=== PATIENT | female | born 1955 | race Caucasian/White ===

== ENCOUNTER 2016-12-20 18:19 | Inpatient (IN) | payer MEDICAID, SELFPAY ==
[2016-12-20] MEDS ORDERED: Ondansetron HCl/PF 4 MG/2 ML Vial ONE (18:32)
[2016-12-20 18:57] LABS: #Eosinphils 0.1 thou/uL (0.0-0.7); #Lymphocytes 1.3 thou/uL (1.20-3.40); #Monocytes 0.8 thou/uL (0.11-0.59); #Neutrophils 4.2 thou/uL (1.40-6.50); %Basophils 0.7 % (0.0-1.0); %Lymphocytes 20.8 % (21.0-51.0); %Monocytes 11.9 % (0.0-10.0); Hematocrit 40.7 % (36.0-47.0); Mean Platelet Volume 7.1 fL (7.4-10.4); Red Blood Cell (RBC) Count 4.33 mill/uL (4.20-5.40); White Blood Cell (WBC) Count 6.4 thou/uL (4.8-10.8)
[2016-12-20 19:38] LABS: Chloride 104 mmol/L (98-107)
[2016-12-20 19:39] LABS: Calcium 7.7 mg/dL (7.8-10.44); Globulin 2.7 g/dL (2.4-3.5); Protein, Total 5.6 g/dL (6.0-8.3)
[2016-12-20 19:41] LABS: Anion Gap 12 mmol/L (10-20); Bilirubin, Total 2.8 mg/dL (0.2-1.2); Carbon Dioxide 19 mmol/L (23-31)
[2016-12-20 19:42] LABS: Alkaline Phosphatase 340 U/L (40-150)
[2016-12-20 19:43] LABS: BUN (Urea Nitrogen) 25 mg/dL (9.8-20.1); Calc. Creatinine Clearance 0 mL/min (70-130); Estimated GFR-MDRD 70
[2016-12-20 19:44] LABS: AST (SGOT) 1173 U/L (5-34)
[2016-12-20 19:45] LABS: ALT (SGPT) 482 U/L (8-55)
[2016-12-20] MEDS ORDERED: Dextrose 50% Abboject 50 ML SYRINGE ONE (19:54)
[2016-12-20] MEDS ORDERED: Water For Inject, Bacteriostat 30 ML ONE (22:40)
[2016-12-20] MEDS ORDERED: methylPREDNISolone Sod Succ/PF 125 MG/2 ML VIAL ONE (22:40)
[2016-12-20 22:45] LABS: Bilirubin Small (Negative); Blood, Urine Negative (Negative); Glucose, Urine (Dipstick) 100 mg/dL (Negative); Ketone, Urine Trace mg/dL (Negative); Nitrite Negative (Negative); Protein, Urine (Dipstick) Negative (Neg-Trace)
[2016-12-20 22:49] LABS: Bacteria/HPF Rare-Few HPF (None Seen); Hyaline Casts/LPF 0-3 HYALINE CAST LPF (0-3 Hyaline); RBC/HPF 0-3 HPF (0-3); Squamous Epithelial None Seen HPF (0-3); WBC/HPF 0-3 HPF (0-3)
--- NOTE | 2016-12-20 22:49 | RAD ---
CHEST ONE VIEW ABDOMEN TWO VIEWS 12/20/16 HISTORY: Chest and abdomen pain. COMPARISON: 07/26/14 FINDINGS: The cardiac silhouette is magnified by projection. Pulmonary vasculature is unremarkable. Lungs are hyperinflated. A lobular 2.7 cm nodule now projects over the right lung base. There is no evidence o f free subdiaphragmatic gas. Gas and stool are apparent within the colon and rectum. Metallic clips overlie the gallbladder fossa . No differential air fluid levels are apparent. Phleboliths project over the pelvis. IMPRESSION: 1. Nonspecific bowel gas pattern. No evidence of obstruction. 2. Status post cholecystectomy. 3. Lobular nodular density projecting over the right lung base. Please consider short term foll owup with upright PA and lateral views of the chest. 4. COPD. POS: [facility]
[2016-12-20] MEDS ORDERED: Ondansetron HCl/PF 4 MG/2 ML Vial IVP PRN (23:55)
[2016-12-20] MEDS ORDERED: Acetaminophen 325 MG TAB PO PRN (23:55)
[2016-12-20] MEDS ORDERED: Ondansetron ODT 4 MG TAB SL PRN (23:55)
--- NOTE | 2016-12-21 00:12 | PDOC.EVN ---
Event Note - Event Note Event Note: [id number] h&p dictated 1. R/O Pneumonia 2. ACute adrenal crisis 3. Hypotension 4. Non gap metabolci acidosis 5. Hypokalemia see orders
[2016-12-21 00:14] VITALS: BMI 19.1
[2016-12-21] MEDS ORDERED: Hydrocortisone Sod Succ/PF 100 mg/2 ml Vial IVP SCH ×2 (00:30→06:00)
[2016-12-21] MEDS ORDERED: Hydrocortisone Sod Succ/PF 100 MG in Sodium Chloride 0.9% 50 ML IVPB SCH (00:30)
[2016-12-21] MEDS: Dextrose 5 % And 0.9 % NaCl 1,000 ML IV SCH ×2 (00:30→06:17)
[2016-12-21] MEDS ORDERED: Sodium Chloride 0.9% 1,000 ML IV SCH (01:00)
[2016-12-21] MEDS ORDERED: Potassium Chloride 40 MEQ in Sodium Chloride 0.9% 500 ML IVPB SCH (01:00)
[2016-12-21 01:11] LABS: Troponin I 0.086 ng/mL (< 0.028)
[2016-12-21 04:22] LABS: Troponin I 0.116 ng/mL (< 0.028)
[2016-12-21] MEDS: Levothyroxine Sodium 75 MCG TAB PO SCH (06:16)
--- NOTE | 2016-12-21 06:21 | HP ---
DATE OF ADMISSION: 12/21/2016 CHIEF COMPLAINT: Nausea, vomiting. HISTORY OF PRESENT ILLNESS: The patient is a 66-year-old female with past medical history of [place] 's disease, hypothyroidism, now came to the ER today complaining of nausea, vomiting, and diarrhea. The patient started having nausea, vomiting and diarrhea 2 days back, 4-5 times. The patient complai ns of generalized fatigue also and so she came to the ER. The patient takes steroids at home, but no t able to keep it down. Denies any cough. The patient complains of some fever and chills, but she d oes not know how high the fever was, denies any chest pain, denies any palpations. Per ED physician, patient was hypoglycemic in the ER also. Symptoms improved after dextrose was given. The patient ap pears tired at this time. Denies any chest pain. Denies any palpations. Denies any cough, denies s putum production. PAST MEDICAL HISTORY: As per HPI. PAST SURGICAL HISTORY: Cholecystectomy. SOCIAL HISTORY: Denies smoking, denies alcohol, denies any drugs. FAMILY HISTORY: Denies any heart problems. MEDICATIONS: Reviewed. ALLERGIES: Reviewed. REVIEW OF SYSTEMS: CONSTITUTIONAL: Positive for fatigue. Positive for fever and chills. EYES: Negative. ENT: Negative. NECK: Negative neck pain. Negative for dizziness and was negative. CARDIOVASCULAR: Denies any chest pain. RESPIRATORY: Denies any cough, denies sputum production. GI: Positive for nausea, vomiting, diarrhea. CRANIAL NERVE SYSTEM: Denies syncope. PSYCHIATRIC: Denies anxiety. INTEGUMENT: Denies any rash. All other review of systems are reviewed and are negative. PHYSICAL EXAMINATION: CONSTITUTIONAL/VITAL SIGNS: At the time of H&P performed, blood pressure is 91/50, pulse ox 97%, hea rt rate 77, respiratory rate 18. GENERAL: The patient appears comfortable. HEENT: Pupils equal, round, and reactive. ENT: Patent. Nose normal. Ears normal. Teeth intact. Tongue is moist. NECK: Supple. No JVD. CARDIOVASCULAR: S1, S2 present. Regular rate and rhythm, no murmurs, no rubs, no gallops. RESPIRATORY SYSTEM: No wheezing, no rhonchi. Breath sounds bilaterally. ABDOMEN: Nontender, no guarding, no organomegaly, no masses felt. MUSCULOSKELETAL: No edema. INTEGUMENT: No skin rash. PSYCHIATRIC: Mood appropriate at this time. LABORATORY DATA: White count 6.4, hemoglobin 13.8, platelet count is 262. BMP showed sodium 132, po tassium 3.4, chloride 104, CO2 of 19, BUN of 25, creatinine 0.82, glucose 30, TSH done on 12/16/2016 is 3.214. Cortisol level is less than 1. ASSESSMENT AND PLAN: The patient is a 61-year-old female. 1. Hypotension, possibly adrenal crisis. The patient said she is taking steroids at home, but her c ortisol level is significantly low. We will go ahead and start patient on IV Solu-Cortef. We will m onitor the patient closely at this time. We will start patient on IV fluids also. 2. Hypokalemia, replace potassium. 3. Metabolic acidosis, non-gap, appears secondary to diarrhea. Monitor bicarbonate level closely. Plan to check stool for C. diff also. 4. Nausea and vomiting p.r.n. antiemetics. 5. Rule out pneumonia. CT acute abdomen showed possible infiltrate. Plan to check a chest x-ray. Plan to put the patient on broad spectrum antibiotics, also. The case was discussed in detail with the patient.
--- NOTE | 2016-12-21 08:19 | PDOC.PN ---
- Subjective Encounter Start Date: 12/21/16 Encounter Start Time: 07:50 Subjective: I FEEL A LITTLE BETTER - Objective MAR Reviewed: Yes Vital Signs & Weight: Vital Signs (12 hours) Temp Pulse Resp BP Pulse Ox 12/21/16 07:57 99.8 F H 65 25 H 99 12/21/16 00:00 99.8 F H 65 25 H 90 L 12/20/16 23:50 99.8 F H 72 24 H 91/48 L 90 L Weight Weight 106 lb 0.677 oz Most Recent Monitor Data Heart Rate from ECG 75 NIBP 110/52 NIBP BP-Mean 57 Respiration from ECG 16 SpO2 98 I&O: 12/20/16 12/21/16 12/22/16 06:59 06:59 06:59 Intake Total 2300 0 Output Total 950 0 Balance 1350 0 Result Diagrams: 12/20/16 18:40 12/20/16 18:40 Additional Labs: Accuchecks 12/21/16 12/21/16 12/21/16 08:09 06:27 03:30 POC Glucose 204 H 145 H 145 H 12/21/16 12/20/16 12/20/16 01:21 23:41 23:13 POC Glucose 103 89 93 Phys Exam - Physical Examination LETHARGIC HEENT: PERRLA Neck: supple, full ROM Respiratory: clear to auscultation bilateral Cardiovascular: RRR Gastrointestinal: soft, non-tender, positive bowel sounds Musculoskeletal: edema present Neurological: non-focal, moves all 4 limbs Dx/Plan (1) [place] disease Code(s): E27.1 - PRIMARY ADRENOCORTICAL INSUFFICIENCY Status: Acute (2) Hypothyroidism Code(s): E03.9 - HYPOTHYROIDISM, UNSPECIFIED Status: Acute (3) Lower extremity edema Code(s): R60.0 - LOCALIZED EDEMA Status: Acute (4) Viral gastroenteritis Code(s): A08.4 - VIRAL INTESTINAL INFECTION, UNSPECIFIED Status: Acute (5) Elevated liver enzymes Code(s): R74.8 - ABNORMAL LEVELS OF OTHER SERUM ENZYMES Status: Acute Plan: viral vs hypotension will r/o infectious process - Plan cont current plan of care * .
[2016-12-21 08:22] LABS: #Lymphocytes 0.5 thou/uL (1.20-3.40); #Monocytes 0.1 thou/uL (0.11-0.59); #Neutrophils 1.9 thou/uL (1.40-6.50); %Eosinophils 0.3 % (0.0-10.0); %Lymphocytes 21.1 % (21.0-51.0); Hematocrit 31.8 % (36.0-47.0); Mean Platelet Volume 7.1 fL (7.4-10.4); Red Blood Cell (RBC) Count 3.38 mill/uL (4.20-5.40); White Blood Cell (WBC) Count 2.5 thou/uL (4.8-10.8)
[2016-12-21 08:44] LABS: Anion Gap 7 mmol/L (10-20); BUN (Urea Nitrogen) 14 mg/dL (9.8-20.1); Calc. Creatinine Clearance 55 mL/min (70-130); Calcium 7.6 mg/dL (7.8-10.44); Carbon Dioxide 19 mmol/L (23-31); Chloride 112 mmol/L (98-107); Estimated GFR-MDRD 74
[2016-12-21 08:50] LABS: Troponin I 0.074 ng/mL (< 0.028)
[2016-12-21] MEDS: Sodium Chloride 0.9% 1,000 ML IV SCH ×2 (09:00→20:36)
--- NOTE | 2016-12-21 11:00 | CON ---
DATE OF CONSULTATION: 12/21/2016 HISTORY OF PRESENT ILLNESS: Jessica Baeza is a 61-year-old female who was admitted last night with n ausea and vomiting, unable to keep food down. She did not take her medicine which is hydrocortisone 20 twice a day, fludrocortisone acetate 0.1 and 75. This morning she is feeling better, in fact, she is eating breakfast. Blood sugars are 200, pulse 67 , blood pressure 101/57, sats are 97, respirations 20. Her I's and O's have been good. She came in last night with nausea and vomiting. No alcohol abuse. PAST MEDICAL HISTORY: Extensively outlined includes Graves' and [place]'s disease many years, diagno sed in the [facility]. PAST SURGICAL HISTORY: Cholecystectomy. SOCIAL HISTORY: Nonsmoker. REVIEW OF SYSTEMS: Otherwise negative. PHYSICAL EXAMINATION: VITAL SIGNS: Pulse 67, blood pressure 100/57, sats 100, respirations 16. CHEST: Chest revealed no wheezing or crackles. CARDIAC: Normal S1 and S2. ABDOMEN: Soft, no masses. LABORATORY: White count 2.6, H&H 10 and 31, platelet count 193, glucose 204. Electrolytes are mp l. Sodium 134. IMPRESSION: 1. Possibly viral syndrome, nausea and vomiting resolved. 2. [place]'s disease on usp maintenance medication. 3. Hypothyroidism. 4. Abnormal x-ray, right lung nodule in a nonsmoker. PLAN: Switched her back to home medications. Continue IV normal saline, supportive care, PT. When stable can be transferred out of the ICU. I will follow while in the ICU.
[2016-12-21] MEDS: Hydrocortisone 10 mg Tablet PO SCH ×2 (14:28→20:45)
[2016-12-21] MEDS: Fludrocortisone Acetate 0.1 MG TAB PO SCH (14:28)
[2016-12-21 14:30] LABS: Troponin I 0.037 ng/mL (< 0.028)
[2016-12-22 04:27] LABS: #Lymphocytes 0.9 thou/uL (1.20-3.40); #Monocytes 0.5 thou/uL (0.11-0.59); #Neutrophils 5.6 thou/uL (1.40-6.50); %Basophils 0.2 % (0.0-1.0); %Eosinophils 0.2 % (0.0-10.0); %Lymphocytes 12.9 % (21.0-51.0); %Monocytes 7.5 % (0.0-10.0); Hematocrit 28.2 % (36.0-47.0); Mean Platelet Volume 7.2 fL (7.4-10.4); Red Blood Cell (RBC) Count 2.97 mill/uL (4.20-5.40); White Blood Cell (WBC) Count 7.1 thou/uL (4.8-10.8)
[2016-12-22 04:44] LABS: ALT (SGPT) 231 U/L (8-55); AST (SGOT) 272 U/L (5-34); Alkaline Phosphatase 221 U/L (40-150); Anion Gap 9 mmol/L (10-20); BUN (Urea Nitrogen) 13 mg/dL (9.8-20.1); Bilirubin, Direct 0.6 mg/dL (0.1-0.3); Bilirubin, Total 0.9 mg/dL (0.2-1.2); Calc. Creatinine Clearance 65 mL/min (70-130); Calcium 7.9 mg/dL (7.8-10.44); Carbon Dioxide 18 mmol/L (23-31); Chloride 116 mmol/L (98-107); Estimated GFR-MDRD 89; Protein, Total 5.4 g/dL (6.0-8.3)
[2016-12-22] MEDS: Sodium Chloride 0.9% 1,000 ML IV SCH (05:47)
[2016-12-22] MEDS: Levothyroxine Sodium 75 MCG TAB PO SCH (05:48)
[2016-12-22] MEDS: Fludrocortisone Acetate 0.1 MG TAB PO SCH (08:53)
[2016-12-22] MEDS ORDERED: FLU VACC QS2017-18 36 mo. & older 0.5 ML SYRINGE IM ONE (09:00)
[2016-12-22] MEDS: Hydrocortisone 10 mg Tablet PO SCH (10:31)
--- NOTE | 2016-12-22 12:39 | PRG ---
DATE OF SERVICE: 12/22/2016 SUBJECTIVE: eJssica Baeza is awake, alert, responsive. PHYSICAL EXAMINATION: VITAL SIGNS: Blood pressure 127/64, saturation 99% on room air, temperature 98, pulse 61, respirator y rate 16. No distress, no nausea, vomiting. CHEST: Decreased breath sounds, no wheezing. CARDIAC: Normal S1 and S2. No gallops. ABDOMEN: Soft, no masses. LABORATORY DATA: Her electrolytes have returned to normal. Liver function is elevated. AST and ALT at 272 and 231. IMPRESSION: 1. Elevated liver function with history of [place] disease on long-term replacement medications. 2. Hypertension, resolved. PLAN: Disposition as per primary care physician, Pulmonary will follow at a distance.
--- NOTE | 2016-12-22 15:51 | PDOC.PN ---
- Subjective Encounter Start Date: 12/22/16 Encounter Start Time: 15:49 Ms. Baeza was seen today in follow-up of [place]'s disease, and gastroenteritis. She says she feels " great ". She denies having any nausea or vomiting or diarrhea. - Objective MAR Reviewed: Yes Vital Signs & Weight: Vital Signs (12 hours) Temp Pulse Resp BP Pulse Ox 12/22/16 11:54 97.4 F L 64 16 112/70 99 12/22/16 08:00 98.1 F 65 16 12/22/16 07:13 98.1 F 65 16 127/64 99 12/22/16 04:00 97.1 F L 67 16 111/54 L 98 Weight Weight 116 lb 4 oz Most Recent Monitor Data Heart Rate from ECG 75 NIBP 110/52 NIBP BP-Mean 57 Respiration from ECG 16 SpO2 98 I&O: 12/21/16 12/22/16 12/23/16 06:59 06:59 06:59 Intake Total 2300 3860 Output Total 950 1000 Balance 1350 2860 Result Diagrams: 12/22/16 04:05 12/22/16 04:05 Additional Labs: Accuchecks 12/22/16 12/22/16 12/21/16 11:57 05:00 20:53 POC Glucose 113 H 107 165 H 12/21/16 16:25 POC Glucose 162 H Phys Exam - Physical Examination HEENT: PERRLA Respiratory: no wheezing, no rales, no rhonchi, clear to auscultation bilateral Cardiovascular: RRR, no significant murmur Gastrointestinal: soft, non-tender, positive bowel sounds Musculoskeletal: no edema Dx/Plan (1) Elevated liver enzymes Code(s): R74.8 - ABNORMAL LEVELS OF OTHER SERUM ENZYMES Status: Acute (2) [place] disease Code(s): E27.1 - PRIMARY ADRENOCORTICAL INSUFFICIENCY Status: Acute (3) Adrenal crisis Status: Acute (4) Hypothyroidism Code(s): E03.9 - HYPOTHYROIDISM, UNSPECIFIED Status: Acute - Plan * Irwin's crisis- mild and it has resolved * Gastroenteritis- resolved * Stable for discharge home.
[2016-12-22 16:35] VITALS: BP 132/79; TEMP 97.8
--- NOTE | 2016-12-22 23:22 | DIS ---
DATE OF ADMISSION: 12/20/2016 DATE OF DISCHARGE: 12/22/2016 DISCHARGE DISPOSITION: Home. PRIMARY DISCHARGE DIAGNOSES: 1. Gastroenteritis. 2. [place]'s crisis. 3. History of hypothyroidism. DISCHARGE MEDICATIONS: Include fludrocortisone 0.1 mg p.o. daily, hydrocortisone 20 mg twice a day, and Synthroid 75 mcg p.o. daily. PROCEDURES DONE DURING THE ADMISSION: She had an echocardiogram indicating an ejection fraction of 5 5% to 60% with poor endocardial definition. CODE STATUS: FULL CODE. ALLERGIES: No known drug allergies. HOSPITAL COURSE: Ms. Baeza is a pleasant 61-year-old female who presented to the emergency room with complaints of nausea, vomiting, and diarrhea. She says that it was occurring at least 4 to 5 times a day. She was also noted to be hypotensive. She was admitted and it was felt that she is having a gastroenteritis which precipitated mild [place]'s crisis. She was given IV hydrocortisone and IV flu id resuscitation and improved dramatically overnight. The following day, she was improved and was evans bsequently able to be discharged home and to have close outpatient followup with her primary care juwan aparicio.
== END 2016-12-22 16:58 | disposition home or self-care (01) | DRG 644 ==
LOC: ERS 18:19 → CCU 22:29 → T4-B 12-21 19:28
PROVIDERS: ADMIT Internal Medicine; ATTEND Internal Medicine
DX: E27.2 Addisonian crisis (principal); E87.2 Acidosis; I95.9 Hypotension, unspecified; R11.2 Nausea with vomiting, unspecified; E27.1 Primary adrenocortical insufficiency; E03.9 Hypothyroidism, unspecified; E87.6 Hypokalemia; I10 Essential (primary) hypertension; Z79.52 Long term (current) use of systemic steroids; A08.4 Viral intestinal infection, unspecified; E16.2 Hypoglycemia, unspecified
CPT/HCPCS: 36415; 36416; 51701; 74022; 80048; 80053; 80074; 80076; 81001; 82533; 83605; 84439; 84484; 85025; 90471; 90682; 90732; 93005; 93306; 96361; 96374; 96375; A4353; G0008; G0009; J1720; J2405; J2930; J3480; J7050; Q2036

== ENCOUNTER 2017-02-24 17:14 | Inpatient (IN) | payer MEDICAID ==
[2017-02-24] MEDS ORDERED: Dexamethasone 4 mg/ml Vial ONE (17:52)
[2017-02-24 17:58] LABS: #Eosinphils 0.1 thou/uL (0.0-0.7); #Lymphocytes 2.4 thou/uL (1.20-3.40); #Monocytes 1.1 thou/uL (0.11-0.59); #Neutrophils 6.4 thou/uL (1.40-6.50); %Basophils 0.4 % (0.0-1.0); %Eosinophils 1.1 % (0.0-10.0); %Monocytes 10.5 % (0.0-10.0); Hemoglobin 12.7 g/dL (12.0-16.0); Mean Corpuscular HGB CONC 33.3 g/dL (32.0-36.0); Mean Corpuscular Hemoglobin 31.4 pg (27.0-31.0); Mean Corpuscular Volume 94.5 fl (81.0-99.0); Mean Platelet Volume 6.9 fL (7.4-10.4); Platelet Count 290 thou/uL (130-400); RBC Distribution Width 12.3 % (11.5-14.5); Red Blood Cell (RBC) Count 4.03 mill/uL (4.20-5.40)
[2017-02-24 18:03] LABS: INR-International Normal Ratio 1.2; PTT 36.4 SEC (22.9-36.1); Prothrombin Time 15.2 SEC (12.0-14.7)
[2017-02-24] MEDS ORDERED: Oseltamivir 75 MG CAP PO SCH (18:15)
[2017-02-24 18:24] LABS: CKMB 0.1 ng/mL (0-6.6); Troponin I 0.019 ng/mL (< 0.028)
[2017-02-24 18:28] LABS: ALT (SGPT) 63 U/L (8-55); AST (SGOT) 155 U/L (5-34); Albumin 3.8 g/dL (3.4-4.8); Alkaline Phosphatase 118 U/L (40-150); Anion Gap 14 mmol/L (10-20); BUN (Urea Nitrogen) 19 mg/dL (9.8-20.1); Bilirubin, Total 0.7 mg/dL (0.2-1.2); Calc. Creatinine Clearance 0 mL/min (70-130); Calcium 9.2 mg/dL (7.8-10.44); Carbon Dioxide 21 mmol/L (23-31); Chloride 102 mmol/L (98-107); Estimated GFR-MDRD 37; Globulin 3.5 g/dL (2.4-3.5); Glucose 103 mg/dL (80-115); Lipase 43 U/L (8-78); Magnesium 1.6 mg/dL (1.6-2.6); Potassium 4.4 mmol/L (3.5-5.1); Protein, Total 7.3 g/dL (6.0-8.3); Sodium 133 mmol/L (136-145)
[2017-02-24] MEDS ORDERED: Acetaminophen 1,000 MG in Premix Bag 1 BAG IVPB SCH (18:30)
--- NOTE | 2017-02-24 18:39 | RAD ---
ONE VIEW CHEST 02/25/16 HISTORY: Cough. Flu symptoms. COMPARISON: 07/26/14. No definite infiltrate. Vascular attenuation is seen bilaterally. Heart and mediastinum are unremarka ble. IMPRESSION: No acute infiltrates seen on one view study. POS: [facility]
[2017-02-24] MEDS ORDERED: Cefepime 2 GM/10 ML SYR ONE (18:51)
[2017-02-24] MEDS ORDERED: Norepinephrine 8 MG/0.9% NS 250 ML ONE (19:25)
[2017-02-24 19:29] LABS: Actual Bicarbonate (HCO3a) 17.8 mEq/L (22-26); Base Excess (BEa) -4.2 mEq/L (0 (+/-) 2.5); CO2 Tension 25.5 mmHg (35.0-45.0); O2 Tension (PaO2) 65.7 mmHg (80.0-100.0); pH, Arterial 7.46 (7.35-7.45)
[2017-02-24 19:30] LABS: ALV-art Gradient 52.155 (0-20); Analyzer IN Cardio ER; Puncture Site RRA
--- NOTE | 2017-02-24 19:39 | CT ---
CT HEAD WITHOUT CONTRAST: 02/24/17 Multiple axial tomograms obtained through the head without IV enhancement. HISTORY: Mental status change. Ventricles have normal size and position. No evidence of intracranial hemorrhage or mass. Sinuses and mastoids are well aerated. IMPRESSION: No evidence of acute abnormality. POS: [facility]
[2017-02-24] MEDS ORDERED: Acetaminophen 650 MG Suppository PR PRN (19:40)
[2017-02-24] MEDS ORDERED: CCU Electrolyte Replacement 1 EACH IVPB ONE (19:40)
[2017-02-24] MEDS ORDERED: Bisacodyl 5 MG TAB PO PRN (19:40)
[2017-02-24] MEDS ORDERED: Acetaminophen 325 MG TAB PO PRN (19:40)
[2017-02-24] MEDS ORDERED: Ondansetron HCl/PF 4 MG/2 ML Vial IVP PRN (19:40)
[2017-02-24] MEDS ORDERED: Norepinephrine 8 MG/0.9% NS 250 ML IVPB PRN (19:40)
[2017-02-24] MEDS ORDERED: CCU ELECTROLYTE REPLACEMENT PROTOCOL FS PRN (19:49)
[2017-02-24] MEDS ORDERED: Potassium Phosphate 15 MMOL in Sodium Chloride 0.9% 250 ML 250 ML IV PRN (19:49)
[2017-02-24] MEDS ORDERED: Magnesium Oxide 400 MG TAB PO PRN ×2 (19:49)
[2017-02-24] MEDS ORDERED: Potassium Chloride 40 MEQ in Premix Bag 1 BAG IVPB PRN (19:49)
[2017-02-24] MEDS ORDERED: Potassium Phosphate 12 MMOL in Sodium Chloride 0.9% 250 ML 250 ML IV PRN (19:49)
[2017-02-24] MEDS ORDERED: Potassium Chloride 20 MEQ TAB PO PRN (19:49)
[2017-02-24] MEDS ORDERED: Magnesium 2 GM/NS 0.9% 100 ML 2 GM in Premix Bag 1 BAG IVPB PRN (19:49)
[2017-02-24] MEDS ORDERED: Potassium Phosphate 9 MMOL in Sodium Chloride 0.9% 100 ML IVPB PRN (19:49)
[2017-02-24] MEDS ORDERED: Potassium Chloride 40 MEQ in Sodium Chloride 0.9% 250 ML 250 ML IVPB PRN (19:49)
[2017-02-24 20:21] LABS: Bilirubin Negative (Negative); Blood, Urine Negative (Negative); Clarity CLEAR (Clear); Glucose, Urine (Dipstick) Negative (Negative); Leukocyte Negative (Negative); Nitrite Negative (Negative); Protein, Urine (Dipstick) Negative (Neg-Trace); Specific Gravity, Urine 1.015 (1.002-1.036); Urobilinogen 0.2 mg/dL (0.2-1.0)
[2017-02-24] MEDS ORDERED: Lorazepam 2 MG/ML VIAL ONE (20:27)
--- NOTE | 2017-02-24 20:29 | HP ---
PRIMARY CARE PHYSICIAN: None. CHIEF COMPLAINT: Fever. HISTORY OF PRESENT ILLNESS: Ms. Baeza is a pleasant 61-year-old lady, who was seen at [facility] on 02/24/2017. She is accompanied by her daughter in the emergency room. She was reportedly doing well until yesterday. Her last long distance travel was to [place] from 01/06 to 01/27/2017 She has received influenza vaccine as well as pneumococcal vaccine this year. Today morning, she started feeling unwell. She complained of a sore throat. She also had fever and chills, although her temperature was not recorded at home. She did not have any headache. She denie s any nausea, vomiting, or diarrhea. She reports having cough that is nonproductive. She denies any chest pain. She denies any abdominal pain. She came to the emergency room because of ongoing fever and chills. REVIEW OF SYSTEM: The following complete review of systems was negative, unless otherwise mentioned in the HPI or below: Constitutional: Weight loss or gain, sense of well-being, ability to conduct usual activities, exerc ise tolerance. Skin/Breast: Rash, itching, changes in hair growth or loss, nail changes, breast lum ps, tenderness, swelling, nipple discharge. Eyes: Vision, double vision, tearing, blind spots, pain . ENT/Mouth: Headaches (location, time of onset, duration, precipitating factors), vertigo, lighthe adedness, injury. Vision, double vision, tearing, blind spots, pain, nose bleeding, colds, obstructio n, discharge, dental difficulties, gingival bleeding, dentures, neck stiffness, pain, tenderness, mas ses in thyroid or other areas. Cardiovascular: Precordial pain, substernal distress, palpitations, syncope, dyspnea on exertion, orthopnea, nocturnal paroxysmal dyspnea, edema, cyanosis, hypertension, heart murmurs, varicosities, phlebitis, claudication. Respiratory: Pain, shortness of breath, whee zing, stridor, cough, hemoptysis, fever or night sweats. Gastrointestinal: Poor appetite, dysphagia , indigestion, abdominal pain, heartburn, eructation, nausea, vomiting, hematemesis, jaundice, consti pation, or diarrhea, abnormal stools (jan-colored, tarry, bloody, greasy, foul smelling), flatulence , hemorrhoids, recent changes in bowel habits. Genitourinary: Urgency, frequency, dysuria, nocturia , hematuria, polyuria, oliguria, unusual (or change in) color of urine, stones, hesitancy, change in size of stream, dribbling, acute retention or incontinence, libido, potency. Musculoskeletal: Pain, swelling, redness or heat of muscles or joints, limitation, of motion, muscul ar weakness, atrophy, cramps. Neurologic/Psychiatric: Convulsions, paralyses, tremor, incoordinatio n, parasthesias, difficulties with memory of speech, sensory or motor disturbances, or muscular coord ination (ataxia, tremor), emotional problems, anxiety, depression, previous psychiatric care, unusual perceptions, hallucinations. Allergy/Immunologic: Skin rash, anemia, bleeding tendency, polydipsia, polyuria, intolerance to heat or cold. PAST MEDICAL HISTORY: Significant for Graves' disease and [place]'s disease. PAST SURGICAL HISTORY: Significant for cholecystectomy. SOCIAL HISTORY: The patient denies tobacco use, alcohol use, or recreational drug use. FAMILY HISTORY: Significant for myocardial infarction in her mother. ALLERGIES: No known drug allergies. CURRENT MEDICATIONS: Hydrocortisone 10 mg daily, fludrocortisone 0.1 mg daily, and levothyroxine 75 mcg daily. PHYSICAL EXAMINATION: GENERAL: Ms. Baeza is awake and alert, appears tired. VITAL SIGNS: Blood pressure is 92/73, pulse is 86. She is breathing at rate of 20 and saturating 99 % on 2 liters of oxygen. She has temperature of 100 degrees Fahrenheit. When she presented to the e mergency room, her blood pressure was 55/33 and pulse was 76. She was breathing at rate of 40. Her T-max in the emergency room was 104.3, rectally at 1811 hours. EYES: No scleral icterus. No conjunctival pallor. ENT: Dry mucosal membranes, no oropharyngeal erythema or exudates. NECK: Supple, nontender, normal range of movement. Trachea is midline. RESPIRATORY: Accessory muscles of breathing are not active. Chest wall movements are symmetric bila terally. LUNGS: Clear to auscultation without wheeze, rhonchi, or crepitations. CARDIOVASCULAR: S1 and S2 are heard, regular. Peripheral pulses palpable. No carotid bruit, no per icardial rub. NEUROLOGIC: Cranial nerves II-XII are intact. Deep tendon reflexes are 2+. MUSCULOSKELETAL: Power is 5/5 in all 4 extremities. Normal range of movement at all major extremity joints. SKIN: No rashes or subcutaneous nodules. PSYCHIATRIC: Normal mood and normal affect, patient is oriented to person, place, and time. LABORATORY DATA: Ms. Simons labs and investigations were reviewed. I reviewed her electrocardiogram , which shows normal sinus rhythm, ST depressions in the inferior lateral leads. I also reviewed her chest x-ray, which does not show any pulmonary infiltrates. She also had a noncontrast CT scan of t he brain, which did not show any acute intracranial abnormality. She has a normal white count, mp l hemoglobin, normal platelet count, INR 1.2, cortisol less than 1, normal TSH, mildly elevated BNP o f 139, normal troponin I, elevated lactic acid of 2.7, decreased sodium of 133, decreased carbon diox daniel of 21, normal potassium, elevated creatinine of 1.42, elevated AST of 155, elevated ALT of 63, no rmal alkaline phosphatase, normal total bilirubin, normal ammonia level, and normal lipase. Arterial blood gases show pH of 7.46, pCO2 of 25, and pO2 of 65. She has an influenza screen, which was posi tive for influenza A antigen. ASSESSMENT AND PLAN: Ms. Baeza is a pleasant 61-year-old lady, who was seen at [facility] on 02/24/2017. Her problem list includes: 1. Septic shock: Ms. Baeza is present to the emergency room with septic shock. Most likely source of infection is influenza. However, given her history of cough, other pulmonary infections cannot be ruled out. Also, her urinalysis is pending. I will continue her on antibiotics and Tamiflu, which have already been started. She will be admitted to the critical care unit. The emergency room physi jeyson is preparing to place a central line for vasopressors if needed. 2. Influenza A infection. We will continue her on Tamiflu 75 mg 2 times a day. 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 4. Graves' disease. TSH is normal at this time. 5. Hyponatremia: Mild, we will recheck. 6. Metabolic acidosis: Secondary to lactic acidosis. We will recheck a metabolic profile. LEVEL OF RISK: High. LEVEL OF COMPLEXITY: High. Many thanks for allowing me to participate in your patient's care.
[2017-02-24] MEDS ORDERED: Cefepime 2 GM in Sodium Chloride 0.9% 100 ML IVPB SCH (21:00)
[2017-02-24] MEDS ORDERED: Hydrocortisone Sod Succ/PF 100 mg/2 ml Vial ONE (21:20)
--- NOTE | 2017-02-24 21:46 | RAD ---
PORTABLE CHEST: 02/24/17 HISTORY: Central line placement. COMPARISON: 02/24/17 at 5:50 p.m. FINDINGS/IMPRESSION: Central line has been placed via the right jugular. The tip overlies the SVC and appears in adequate position. The lungs appear clear. Vascular markings are increased on this supine projection. POS: [facility]
[2017-02-24 22:04] LABS: Lactic Acid 0.8 mmol/L (0.5-2.2)
[2017-02-25 00:03] VITALS: BMI 17.6
[2017-02-25] MEDS: Oseltamivir 75 MG CAP PO SCH ×3 (00:16→20:50)
[2017-02-25] MEDS: Sodium Chloride 0.9% 1,000 ML IV SCH ×4 (00:17→20:52)
[2017-02-25] MEDS: Hydrocortisone Sod Succ/PF 100 mg/2 ml Vial IVP SCH ×3 (00:19→09:30)
[2017-02-25 01:53] LABS: Lactic Acid 0.6 mmol/L (0.5-2.2)
[2017-02-25 04:18] LABS: #Lymphocytes 0.7 thou/uL (1.20-3.40); #Monocytes 0.8 thou/uL (0.11-0.59); #Neutrophils 7.2 thou/uL (1.40-6.50); %Basophils 0.5 % (0.0-1.0); %Eosinophils 0.2 % (0.0-10.0); %Lymphocytes 7.6 % (21.0-51.0); %Monocytes 8.8 % (0.0-10.0); %Neutrophils 82.9 % (42.0-75.0); Mean Corpuscular HGB CONC 33.2 g/dL (32.0-36.0); Mean Corpuscular Hemoglobin 31.3 pg (27.0-31.0); Mean Corpuscular Volume 94.2 fl (81.0-99.0); Mean Platelet Volume 6.9 fL (7.4-10.4); Platelet Count 291 thou/uL (130-400); RBC Distribution Width 12.3 % (11.5-14.5); Red Blood Cell (RBC) Count 3.53 mill/uL (4.20-5.40); White Blood Cell (WBC) Count 8.7 thou/uL (4.8-10.8)
[2017-02-25 04:36] LABS: Anion Gap 14 mmol/L (10-20); BUN (Urea Nitrogen) 19 mg/dL (9.8-20.1); Calc. Creatinine Clearance 43 mL/min (70-130); Calcium 8.1 mg/dL (7.8-10.44); Carbon Dioxide 17 mmol/L (23-31); Chloride 110 mmol/L (98-107); Estimated GFR-MDRD 59; Glucose 113 mg/dL (80-115); Potassium 3.3 mmol/L (3.5-5.1); Sodium 138 mmol/L (136-145)
[2017-02-25] MEDS: Cefepime 2 GM, Syringe 2.5 ML in Sterile Water 10 ML SLOW IVP SCH ×2 (05:36→18:04)
[2017-02-25] MEDS ORDERED: Levothyroxine Sodium 75 MCG TAB PO SCH (07:15)
[2017-02-25] MEDS ORDERED: Fludrocortisone Acetate 0.1 MG TAB PO SCH (09:00)
[2017-02-25] MEDS: Enoxaparin Sodium 40 MG/0.4 ML SYRINGE SC SCH (09:31)
--- NOTE | 2017-02-25 10:05 | PDOC.PN ---
- Subjective Encounter Start Date: 02/25/17 Encounter Start Time: 08:10 -: old records requested/rev pt is off levophed drip this morning, has cough, she did not take her steroid yesterday due to sickness, now BP improved, pt feels better, no fever - Objective MAR Reviewed: Yes Vital Signs & Weight: Vital Signs (12 hours) Temp Pulse Resp Pulse Ox 02/25/17 04:00 98.3 F 02/25/17 00:00 97.6 F 63 22 H 95 Weight Weight 99 lb 10.383 oz Most Recent Monitor Data Heart Rate from ECG 66 NIBP 115/54 NIBP BP-Mean 80 Respiration from ECG 21 SpO2 98 I&O: 02/24/17 02/25/17 02/26/17 06:59 06:59 06:59 Intake Total 1066 Output Total 735 Balance 331 Result Diagrams: 02/25/17 03:35 02/25/17 03:35 Radiology Reviewed by me: Yes (chest xray) EKG Reviewed by me: Yes (nsr) Phys Exam - Physical Examination Constitutional: NAD HEENT: PERRLA, moist MMs, sclera anicteric Neck: no JVD, supple Respiratory: no wheezing, no rales, no rhonchi Cardiovascular: RRR, no significant murmur, no rub Gastrointestinal: soft, non-tender, no distention, positive bowel sounds Musculoskeletal: no edema, pulses present Neurological: non-focal, normal sensation, moves all 4 limbs Psychiatric: normal affect, A&O x 3 Skin: no rash, normal turgor Dx/Plan (1) Influenza A Code(s): J10.1 - FLU DUE TO OTH IDENT INFLUENZA VIRUS W OTH RESP MANIFEST Status: Acute (2) Hypokalemia Code(s): E87.6 - HYPOKALEMIA Status: Acute (3) Adrenal crisis Status: Acute (4) Elevated liver enzymes Code(s): R74.8 - ABNORMAL LEVELS OF OTHER SERUM ENZYMES Status: Acute (5) Hypotension Status: Acute (6) Lactic acidosis Code(s): E87.2 - ACIDOSIS Status: Acute (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 * restart selected home meds Review of Systems - Review of Systems Constitutional: weakness. negative: fever, chills, sweats, malaise, other ENT: negative: Ear Pain, Ear Discharge, Nose Pain, Nose Discharge, Nose Congestion, Mouth Pain, Mouth Swelling, Throat Pain, Throat Swelling, Other Respiratory: Cough, Sputum. negative: Dry, Shortness of Breath, Hemoptysis, SOB with Excertion, Pleuritic Pain, Wheezing Cardiovascular: negative: chest pain, palpitations, orthopnea, paroxysmal nocturnal dyspnea, edema, light headedness, other Gastrointestinal: negative: Nausea, Vomiting, Abdominal Pain, Diarrhea, Constipation, Melena, Hematochezia, Other Genitourinary: negative: Dysuria, Frequency, Incontinence, Hematuria, Retention , Other Musculoskeletal: negative: Neck Pain, Shoulder Pain, Arm Pain, Back Pain, Hand Pain, Leg Pain, Foot Pain, Other Skin: negative: Rash, Lesions, Richard, Bruising, Other - Medications/Allergies Allergies/Adverse Reactions: Allergies Allergy/AdvReac Type Severity Reaction Status Date / Time No Known Allergies Allergy Verified 12/21/16 00:10 Medications: Current Medications Acetaminophen (Tylenol) 650 mg PO Q4H PRN PRN Reason: Headache/Fever or Pain Acetaminophen (Tylenol) 650 mg ID Q4H PRN PRN Reason: Headache/Fever or Pain Albuterol/Ipratropium (Duoneb) 3 ml NEB [id number] PRN PRN Reason: SOB &/or Wheezing Bisacodyl (Dulcolax) 10 mg PO DAILYPRN PRN PRN Reason: Constipation Enoxaparin Sodium (Lovenox) 40 mg SC 0900 [facility] Last Admin: 02/25/17 09:31 Dose: 40 mg Fludrocortisone Acetate (Florinef) 0.1 mg PO DAILY [facility] Last Admin: 02/25/17 09:31 Dose: 0.1 mg Hydrocortisone Sodium Succinate (Solu-Cortef) 50 mg IVP 0200,0800,1400,2000 [facility] Last Admin: 02/25/17 09:30 Dose: 50 mg Levofloxacin 750 mg/ Device 150 mls @ 100 mls/hr IVPB 1800 [facility] Norepinephrine Bitartrate (Levophed) 250 mls @ 0 mls/hr IVPB PRN PRN; Protocol ; Titrate PRN Reason: To maintain MAP > 65 Sodium Chloride (Normal Saline 0.9%) 1,000 mls @ 125 mls/hr IV .Q8H [facility] Last Admin: 02/25/17 04:41 Dose: 1,000 mls Potassium Chloride 40 meq/ (Sodium Chloride) 270 mls @ 135 mls/hr IVPB ASDIR PRN PRN Reason: FOR SERUM K+ 2.5 - 3.5 Potassium Chloride 40 meq/ (Device) 100 mls @ 50 mls/hr IVPB ASDIR PRN PRN Reason: FOR SERUM K+ 2.5 - 3.5 Magnesium Sulfate 1 gm/ Sodium (Chloride) 102 mls @ 102 mls/hr IV PRN PRN PRN Reason: MAG LEVEL 1.4 - 2.0 Magnesium Sulfate 2 gm/ Device 100 mls @ 100 mls/hr IVPB ASDIR PRN PRN Reason: MAGNESIUM < 1.4 Potassium Phosphate 9 mmol/ (Sodium Chloride) 103 mls @ 25.75 mls/hr IVPB ASDIR PRN PRN Reason: Phosphate 1.0-1.8 Potassium Phosphate 12 mmol/ (Sodium Chloride) 254 mls @ 63.5 mls/hr IV ASDIR PRN PRN Reason: Serum phosphate 0.5-0.9 Potassium Phosphate 15 mmol/ (Sodium Chloride) 255 mls @ 63.75 mls/hr IV ASDIR PRN PRN Reason: Serum Phos < 0.5 Cefepime HCl 2 gm/ Syringe 2.5 (ml/ Sterile Water) 12.5 mls @ 150 mls/hr SLOW IVP 0600,1800 [facility] Last Admin: 02/25/17 05:36 Dose: 12.5 mls Levothyroxine Sodium (Synthroid) 75 mcg PO 0600 [facility] Magnesium Oxide (Magnesium Oxide) 400 mg PO BIDPRN PRN PRN Reason: FOR SERUM MAG 1.4 - 2.0 Magnesium Oxide (Magnesium Oxide) 800 mg PO PRN PRN PRN Reason: FOR SERUM MAG < 1.4 Miscellaneous Medication (Phos-Nak) 1 pkt PO TIDPRN PRN PRN Reason: FOR PHOS LEVEL 1.0 - 1.8 Miscellaneous Medication (Phos-Nak) 2 pkt PO TIDPRN PRN PRN Reason: FOR PHOS LEVEL 0.5 - 1.0 Ccu Electrolyte (Replacement Protocol) 0 each FS PRN PRN PRN Reason: FOR ELECTROLYTE REPLACEMENT Ondansetron HCl (Zofran) 4 mg IVP Q6H PRN PRN Reason: Nausea/Vomiting Oseltamivir Phosphate (Tamiflu) 75 mg PO BID [facility] Stop: 03/01/17 09:01 Last Admin: 02/25/17 09:30 Dose: 75 mg Potassium Chloride (K-Dur) 40 meq PO ASDIR PRN PRN Reason: FOR SERUM K+ 2.5 - 3.5 Last Admin: 02/25/17 06:11 Dose: 40 meq Potassium Chloride (Klor-Con) 40 meq PER TUBE ASDIR PRN PRN Reason: FOR SERUM K+ 2.5-3.5
[2017-02-25] MEDS ORDERED: Zolpidem Tartrate 5 MG TAB PO PRN (13:01)
[2017-02-25] MEDS ORDERED: Artificial Tears 18 DROP/0.9 ML EA EYE PRN (13:01)
[2017-02-25] MEDS ORDERED: Loratadine 10 MG TAB PO PRN (13:01)
[2017-02-25] MEDS ORDERED: Eucerin (Mineral Oil/Petrolatum,White) 30 gm Jar TOP PRN (13:01)
[2017-02-25] MEDS ORDERED: Chloraseptic Spray 180 ml Bottle PO PRN (13:01)
[2017-02-25] MEDS ORDERED: Loperamide HCl 2 MG CAP PO PRN (13:01)
[2017-02-25] MEDS ORDERED: Sodium Chloride 0.65% Nasal 44 ML BOT EA NARE PRN (13:01)
[2017-02-25] MEDS ORDERED: hydrALAZINE 20 MG/ML VIAL SLOW IVP PRN (13:01)
[2017-02-25] MEDS ORDERED: Milk Of Magnesia 30 ML UDCUP PO PRN (13:01)
[2017-02-25] MEDS ORDERED: Ondansetron ODT 4 MG TAB PO PRN (13:01)
[2017-02-25] MEDS ORDERED: Mag-Al 1200 mg/1200 mg/30 ML UDCUP PO PRN (13:01)
[2017-02-25] MEDS ORDERED: HYDROcodone/Acetaminophen 5/325 mg Tablet PO PRN (13:01)
[2017-02-25] MEDS ORDERED: Benzonatate 100 MG CAP PO PRN (13:01)
[2017-02-25] MEDS ORDERED: Diabetic Tussin 200 MG/10 ML UDCUP PO PRN (13:01)
[2017-02-25] MEDS: Famotidine 20 MG TAB PO SCH (20:50)
--- NOTE | 2017-02-25 21:14 | CON ---
DATE OF CONSULTATION: 02/25/2017 Jessica Baeza is a 61-year-old female. She lives in [facility]. 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 She apparently presented to the emergency room after not taking her steroids for 2 days with altered mental status and hypotension. She subsequently was admitted. She was given steroids intravenously, fluids and pressors. She has been weaned off her pressors. She is now awake and alert. PAST MEDICAL HISTORY: Otherwise unremarkable with the exception of Graves disease, and hypothyroidism. She has had a cholecystectomy in the past. Nonsmoker, nondrinker, nondrug user. FAMILY HISTORY: Positive for vascular disease. ALLERGIES: She has no reported drug allergies. REVIEW OF SYSTEMS: Otherwise negative. MEDICATIONS: She is on hydrocortisone 10 mg a day, Florinef 0.1 and Synthroid 75 mcg a day. PHYSICAL EXAMINATION: VITAL SIGNS: Blood pressure 131/67. She is afebrile, heart rate 65, respiratory rate is 20, oximetry is 99 now. HEENT: Pupils are equal. Sclerae is anicteric. NECK: Supple, no lymphadenopathy. She does have brown skin. LUNGS: Clear. HEART: Regular rhythm. S1 and S2 are normal. ABDOMEN: Soft and nontender. EXTREMITIES: Without clubbing, cyanosis or edema. IMPRESSION: Addisonian crisis brought on by a viral illness most likely, I have adjusted her steroids. Hydrocortisone 10 mg a day probably not enough on a daily basis and definitely not enough if she is ill. I had a discussion with her about getting an core shaper in [place] which is the nearest [facility] with multiple specialists. She also will need a medical alert bracelet identifying her as having Agustin's disease. She will need more than just 10 mg a day hydrocortisone and probably would benefit from 20 mg in the morning and 10 mg in the evening. With hydrocortisone , she really probably does not need Florinef. She should continue on her Synthroid. Probably in 24-48 hours, she can be converted to p.o. medications, 20 of prednisone a day will be more than adequate when she is tolerating p.o. nutrition given that it is 4-5 times more potent than hydrocortisone. I again emphasized the importance of a medical alert bracelet and coming to the hospital if she is not able to keep her p.o. steroids down. This is a 70-minute consult in which greater than 50% of the time was spent coordinating care on the unit with the nurses and reviewing radiographs and old records. Critical care time 35 min. PAWAN
[2017-02-26] MEDS: Sodium Chloride 0.9% 1,000 ML IV SCH (05:00)
[2017-02-26 05:29] LABS: #Lymphocytes 1.1 thou/uL (1.20-3.40); #Monocytes 0.6 thou/uL (0.11-0.59); #Neutrophils 3.7 thou/uL (1.40-6.50); %Basophils 0.4 % (0.0-1.0); %Eosinophils 0.6 % (0.0-10.0); %Lymphocytes 20.1 % (21.0-51.0); %Monocytes 10.8 % (0.0-10.0); Hemoglobin 10.7 g/dL (12.0-16.0); Mean Corpuscular HGB CONC 33.3 g/dL (32.0-36.0); Mean Corpuscular Hemoglobin 31.7 pg (27.0-31.0); Mean Corpuscular Volume 95.3 fl (81.0-99.0); Mean Platelet Volume 7.7 fL (7.4-10.4); Platelet Count 214 thou/uL (130-400); RBC Distribution Width 12.6 % (11.5-14.5); Red Blood Cell (RBC) Count 3.37 mill/uL (4.20-5.40); White Blood Cell (WBC) Count 5.4 thou/uL (4.8-10.8)
[2017-02-26 05:38] LABS: ALT (SGPT) 210 U/L (8-55); AST (SGOT) 280 U/L (5-34); Albumin 2.9 g/dL (3.4-4.8); Alkaline Phosphatase 149 U/L (40-150); Anion Gap 12 mmol/L (10-20); BUN (Urea Nitrogen) 16 mg/dL (9.8-20.1); Bilirubin, Total 0.3 mg/dL (0.2-1.2); Calc. Creatinine Clearance 61 mL/min (70-130); Calcium 7.8 mg/dL (7.8-10.44); Carbon Dioxide 13 mmol/L (23-31); Chloride 114 mmol/L (98-107); Estimated GFR-MDRD 81; Globulin 2.7 g/dL (2.4-3.5); Glucose 89 mg/dL (80-115); Magnesium 1.7 mg/dL (1.6-2.6); Potassium 3.4 mmol/L (3.5-5.1); Protein, Total 5.6 g/dL (6.0-8.3); Sodium 136 mmol/L (136-145)
[2017-02-26] MEDS: Cefepime 2 GM, Syringe 2.5 ML in Sterile Water 10 ML SLOW IVP SCH ×2 (05:40→17:35)
[2017-02-26] MEDS: Levothyroxine Sodium 75 MCG TAB PO SCH (05:40)
[2017-02-26] MEDS: Enoxaparin Sodium 40 MG/0.4 ML SYRINGE SC SCH (07:40)
[2017-02-26] MEDS: Famotidine 20 MG TAB PO SCH ×2 (07:40→19:52)
[2017-02-26] MEDS: Oseltamivir 75 MG CAP PO SCH ×2 (08:56→19:53)
[2017-02-26] MEDS ORDERED: Potassium Chloride 20 MEQ TAB PO SCH (09:45)
--- NOTE | 2017-02-26 09:46 | PDOC.PN ---
- Subjective Encounter Start Date: 02/26/17 Encounter Start Time: 07:10 pt is doing well, no fever, BP stable, has less cough Patient seen and examined. No new complaints. No overnight events - Objective MAR Reviewed: Yes Vital Signs & Weight: Vital Signs (12 hours) Temp Pulse Resp BP Pulse Ox 02/26/17 08:33 98.1 F 61 16 142/88 H 98 02/26/17 07:45 97.7 F 55 L 20 02/26/17 04:22 97.7 F 55 L 20 138/71 98 02/26/17 00:35 98.1 F 58 L 18 146/67 H 95 Weight Admit Weight 99 lb 10.383 oz Weight 108 lb Most Recent Monitor Data Heart Rate from ECG 67 NIBP 121/61 NIBP BP-Mean 80 Respiration from ECG 13 SpO2 98 I&O: 02/25/17 02/26/17 02/27/17 06:59 06:59 06:59 Intake Total 1066 3196.4 Output Total 735 2115 Balance 331 1081.4 Result Diagrams: 02/26/17 04:54 02/26/17 04:54 Phys Exam - Physical Examination Constitutional: NAD HEENT: PERRLA, moist MMs, sclera anicteric Neck: no JVD, supple Respiratory: no wheezing, no rales, no rhonchi Cardiovascular: RRR, no significant murmur, no rub Gastrointestinal: soft, non-tender, no distention, positive bowel sounds Musculoskeletal: no edema, pulses present Neurological: non-focal, normal sensation, moves all 4 limbs Psychiatric: normal affect, A&O x 3 Skin: no rash, normal turgor Dx/Plan (1) Influenza A Code(s): J10.1 - FLU DUE TO OTH IDENT INFLUENZA VIRUS W OTH RESP MANIFEST Status: Acute (2) Hypokalemia Code(s): E87.6 - HYPOKALEMIA Status: Acute (3) Adrenal crisis Status: Acute (4) Elevated liver enzymes Code(s): R74.8 - ABNORMAL LEVELS OF OTHER SERUM ENZYMES Status: Acute (5) Hypotension Status: Resolved (6) Lactic acidosis Code(s): E87.2 - ACIDOSIS Status: Resolved (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 * start Iron and multivitamin Review of Systems - Review of Systems Eyes: negative: Pain, Vision Change, Conjunctivae Inflammation, Eyelid Inflammation, Redness, Other ENT: negative: Ear Pain, Ear Discharge, Nose Pain, Nose Discharge, Nose Congestion, Mouth Pain, Mouth Swelling, Throat Pain, Throat Swelling, Other Respiratory: Cough. negative: Dry, Shortness of Breath, Hemoptysis, SOB with Excertion, Pleuritic Pain, Sputum, Wheezing Cardiovascular: negative: chest pain, palpitations, orthopnea, paroxysmal nocturnal dyspnea, edema, light headedness, other Gastrointestinal: negative: Nausea, Vomiting, Abdominal Pain, Diarrhea, Constipation, Melena, Hematochezia, Other Genitourinary: negative: Dysuria, Frequency, Incontinence, Hematuria, Retention , Other Musculoskeletal: negative: Neck Pain, Shoulder Pain, Arm Pain, Back Pain, Hand Pain, Leg Pain, Foot Pain, Other Skin: negative: Rash, Lesions, Richard, Bruising, Other - Medications/Allergies Allergies/Adverse Reactions: Allergies Allergy/AdvReac Type Severity Reaction Status Date / Time No Known Allergies Allergy Verified 12/21/16 00:10 Medications: Current Medications Acetaminophen (Tylenol) 650 mg PO Q4H PRN PRN Reason: Headache/Fever or Pain Hydrocodone Bitart/Acetaminophen ([place] 5/325) 1 tab PO Q4H PRN PRN Reason: Moderate Pain (4-6) Al Hydroxide/Mg Hydroxide (Maalox) 15 ml PO Q4H PRN PRN Reason: Heartburn or Indigestion Albuterol/Ipratropium (Duoneb) 3 ml NEB [id number] PRN PRN Reason: SOB &/or Wheezing Artificial Tears (Tears Naturale) 0 drop EA EYE PRN PRN PRN Reason: Dry Eyes Benzonatate (Tessalon) 100 mg PO Q4H PRN PRN Reason: Cough Bisacodyl (Dulcolax) 10 mg PO DAILYPRN PRN PRN Reason: Constipation Enoxaparin Sodium (Lovenox) 40 mg SC 0900 [facility] Last Admin: 02/26/17 07:40 Dose: 40 mg Famotidine (Pepcid) 20 mg PO BID [facility] Last Admin: 02/26/17 07:40 Dose: 20 mg Guaifenesin (Robitussin Sf) 200 mg PO Q4H PRN PRN Reason: Cough Hydralazine HCl (Apresoline) 10 mg SLOW IVP Q4H PRN PRN Reason: Systolic BP > 180 Sodium Chloride (Normal Saline 0.9%) 1,000 mls @ 125 mls/hr IV .Q8H [facility] Last Admin: 02/26/17 05:00 Dose: 1,000 mls Cefepime HCl 2 gm/ Syringe 2.5 (ml/ Sterile Water) 12.5 mls @ 150 mls/hr SLOW IVP 0600,1800 [facility] Last Admin: 02/26/17 05:40 Dose: 12.5 mls Levothyroxine Sodium (Synthroid) 75 mcg PO 0600 [facility] Last Admin: 02/26/17 05:40 Dose: 75 mcg Loperamide HCl (Imodium) 2 mg PO PRN PRN PRN Reason: Diarrhea/Loose Stools Loratadine (Claritin) 10 mg PO DAILYPRN PRN PRN Reason: Sinus Symptoms Magnesium Hydroxide (Milk Of Magnesium) 30 ml PO DAILYPRN PRN PRN Reason: Constipation Methylprednisolone Sodium Succinate (Solu-Medrol) 20 mg IVP Q8HR [facility] Last Admin: 02/26/17 05:40 Dose: 20 mg Mineral Oil/White Petrolatum (Eucerin Cream) 0 gm TOP BIDPRN PRN PRN Reason: Dry Skin Ondansetron HCl (Zofran) 4 mg IVP Q6H PRN PRN Reason: Nausea/Vomiting Ondansetron HCl (Zofran Odt) 4 mg PO Q6H PRN PRN Reason: Nausea/Vomiting Oseltamivir Phosphate (Tamiflu) 75 mg PO BID [facility] Stop: 03/01/17 09:01 Last Admin: 02/26/17 08:56 Dose: 75 mg Phenol (Chloraseptic [place] 180 Ml Bot) 0 ml PO PRN PRN PRN Reason: Sore Throat Sodium Chloride ([place] Nasal [place] 0.65%) 0 ml EA NARE QIDPRN PRN PRN Reason: Nasal Congestion Zolpidem Tartrate (Ambien) 5 mg PO HSPRN PRN PRN Reason: Insomnia
[2017-02-26] MEDS ORDERED: Multivitamin W/ Minerals 1 TAB PO SCH (10:00)
[2017-02-26] MEDS ORDERED: Ferrous Sulfate 325 MG TAB PO SCH (10:15)
--- NOTE | 2017-02-27 00:36 | PRG ---
DATE OF SERVICE: 02/26/2017 SUBJECTIVE: Has no other complaints, says she feels like back to her baseline. She is not having na usea, vomiting, and certainly is not having any confusion. I again discussed medic alert bracelet, management of her steroids when she becomes ill, coming into the hospital if she can keep her steroids down and also finding an pathology tech near her home prob ably ideally in [place]. OBJECTIVE: VITAL SIGNS: Her vital signs have been stable. She is afebrile, heart rate is 58, respiratory rate is 18, oximetry is 99% on room air, and blood pre ssure 124/75. IMPRESSION: Adrenal crisis triggered by viral illness, resolved. Cultures remain negative. There is no clear focus of infection. Her IV antibiotics in my opinion should be discontinued. She can be switched to p.o. steroids. She can probably be discharged in the morning.
[2017-02-27] MEDS: Levothyroxine Sodium 75 MCG TAB PO SCH (05:11)
[2017-02-27 05:25] LABS: #Basophils 0.1 thou/uL (0.0-0.2); #Lymphocytes 1.1 thou/uL (1.20-3.40); #Monocytes 0.5 thou/uL (0.11-0.59); #Neutrophils 4.8 thou/uL (1.40-6.50); %Basophils 1.6 % (0.0-1.0); %Eosinophils 0.2 % (0.0-10.0); %Lymphocytes 17.2 % (21.0-51.0); %Monocytes 8.2 % (0.0-10.0); %Neutrophils 72.9 % (42.0-75.0); Hemoglobin 11.8 g/dL (12.0-16.0); Mean Corpuscular HGB CONC 33.6 g/dL (32.0-36.0); Mean Corpuscular Hemoglobin 32.1 pg (27.0-31.0); Mean Corpuscular Volume 95.7 fl (81.0-99.0); Mean Platelet Volume 7.9 fL (7.4-10.4); Platelet Count 237 thou/uL (130-400); RBC Distribution Width 12.8 % (11.5-14.5); Red Blood Cell (RBC) Count 3.67 mill/uL (4.20-5.40); White Blood Cell (WBC) Count 6.6 thou/uL (4.8-10.8)
[2017-02-27] MEDS: Famotidine 20 MG TAB PO SCH (07:51)
[2017-02-27] MEDS: Enoxaparin Sodium 40 MG/0.4 ML SYRINGE SC SCH (07:51)
[2017-02-27] MEDS ORDERED: predniSONE 5 MG TAB PO SCH (08:00)
[2017-02-27] MEDS ORDERED: Ferrous Sulfate 325 MG TAB PO SCH (08:00)
[2017-02-27] MEDS: Oseltamivir 75 MG CAP PO SCH (08:38)
[2017-02-27] MEDS ORDERED: Multivitamin W/ Minerals 1 TAB PO SCH (09:00)
[2017-02-27 10:20] VITALS: BP 125/63; TEMP 98
--- NOTE | 2017-02-27 10:28 | DIS ---
DATE OF ADMISSION: 02/24/2017 DATE OF DISCHARGE: 02/27/2017 PRIMARY CARE PHYSICIAN: [facility]. DISCHARGE DISPOSITION: Home. PRIMARY DISCHARGE DIAGNOSES: 1. Acute adrenal crisis, resolved. 2. Acute influenza A. 3. Hypokalemia, corrected. 4. Lactic acidosis, resolved. 5. Hypotension, resolved. 6. Acute kidney failure, improved. SECONDARY DISCHARGE DIAGNOSES: Chronically elevated liver enzymes, adrenal Lissie's disease, hypoth yroidism, normocytic normochromic anemia, moderate protein calorie malnutrition. PRIMARY PROCEDURES/OPERATIONS: Central line placement. RADIOLOGICAL INVESTIGATION: Chest x-ray was normal. CT brain was negative for any acute intracrania l process. Repeat chest x-ray was normal. SIGNIFICANT LABORATORY DATA: WBC 6.6, hemoglobin 11.8, platelets 237. INR 1.2. Sodium 136, potassi um 3.4, chloride 114, BUN 16, creatinine 0.76, AST 280, ALT 210, alkaline phosphatase 149, albumin 2. 9. Cardiac enzymes negative. TSH 4.55, random cortisol less than 1. BNP 139.9. Ammonia 18. Urina lysis normal. Blood culture negative. Influenza A positive. DISCHARGE MEDICATIONS: The patient will finish Tamiflu 75 mg p.o. b.i.d. for 3 more days. The patie nt will continue following medications, fludrocortisone 0.1 mg p.o. daily, hydrocortisone 20 mg p.o. b.i.d., levothyroxine 75 mcg p.o. daily, ferrous sulfate 325 mg p.o. daily. CONTRAINDICATIONS: None. CODE STATUS: FULL CODE. INPATIENT CONSULTANTS: Dr. Elizabeth was consulted while in hospital. TEST RESULTS PENDING ON DISCHARGE: None. ALLERGIES: No known drug allergy. DISCHARGE PLAN: Post hospital, the patient will follow up with [facility]. The patient is advised to follow up with grain cleaner as an outpatient basis for abnormal LFTs, as well as pat ient is also advised to make appointment with emergency medical technician for Lissie's disease and hypothyroidis m. TEST RESULTS PENDING ON DISCHARGE: None. HOSPITAL COURSE: A 61-year-old female with above-mentioned medical problem who was having flu-like i llness. She was having runny nose, sore throat, cough. She was feeling sick. She was having high g rade fever at home. Because of sickness, she did not take her steroid. When she presented to emerge ncy room, she had adrenal crisis. She was hypotensive. She required a significant amount of fluid a nd she required central line placement. Subsequently for close monitoring, she was admitted in the I . As patient stayed in ICU, Dr. Elizabeth saw this patient. This required Levophed initially to keep her blood pressure up and subsequently, Levophed was discontinued and the patient was continued with IV fluid only. As there was concern of sepsis and that is why the patient was given cefepime and Lev aquin initially and that antibiotic therapy was discontinued later on. At this point, we are suspect ing that because of influenza A, the patient had adrenal crisis especially she stopped taking steroid abruptly. This patient has chronically abnormal LFTs. This patient also had acute kidney failure o n admission, which was resolved with IV fluid. Her [facility] Upon stabilization, we transferred her to medical floor. We prescribed Tamiflu for another 3 days. We discontinued all antibiotic therapy as per pulmonary recommendation. The patient ran out all her medications and that is why I sent all prescriptions to her pharmacy. PHYSICAL EXAMINATION: The patient is seen and examined at the bedside today. VITAL SIGNS: Currently, temperature 97.6, pulse 51, respiratory rate 20, saturation 98%, blood press ure 135/60, weight 112 pounds. GENERAL: The patient is currently alert, awake, no obvious acute distress. HEAD: Normocephalic, atraumatic. EYES: Pupils round, reactive to light. Extraocular muscles intact. ENT: Oropharynx within normal limits. Moist mucous membranes. No oral lesions. No pharyngeal eryt musa, no exudate. NECK: Supple, no JVD, no thyromegaly, no carotid bruit. No jugular venous distention. LUNGS: Clear to auscultation without any rhonchi or rales. CARDIAC: S1, S2 regular without any murmur. ABDOMEN: Soft and benign without any tenderness. EXTREMITIES: No edema. NEUROLOGIC: Nonfocal examination. The patient is medically stable for discharge today. Review of systems is negative and all the medication prescriptions sent to her pharmacy. Total time spent more than 30 minutes to arrange this discharge today.
--- NOTE | 2017-03-04 22:42 | EKG ---
Test Reason : FLU SS Blood Pressure : / mmHG Vent. Rate : 082 BPM Atrial Rate : 082 BPM P-R Int : 158 ms QRS Dur : 056 ms QT Int : 372 ms P-R-T Axes : 091 078 072 degrees QTc Int : 434 ms Normal sinus rhythm Abnormal ECG Confirmed by ZOEY PERDUE ([id number]), department editor ROBERTO SOLITARIO ([id number]) on 03/04/2017 10:41:02 PM Referred By: Confirmed By:ZOEY PERDUE
== END 2017-02-27 10:51 | disposition home or self-care (01) | DRG 644 ==
LOC: ERS 17:14 → CCU 20:15 → T4-B 02-25 14:11
PROVIDERS: ADMIT Internal Medicine; ATTEND Internal Medicine
PROC: 02HV33Z Insertion of Infusion Device into Superior Vena Cava, Percutaneous Approach (ICD-10-PCS; principal; 2017-02-24)
DX: E27.2 Addisonian crisis (principal); N17.9 Acute kidney failure, unspecified; E44.0 Moderate protein-calorie malnutrition; I95.9 Hypotension, unspecified; E87.2 Acidosis; E87.1 Hypo-osmolality and hyponatremia; Z68.1 Body mass index [BMI] 19.9 or less, adult; E27.1 Primary adrenocortical insufficiency; J10.1 Influenza due to other identified influenza virus with other respiratory manifestations; E87.6 Hypokalemia; E03.9 Hypothyroidism, unspecified; D64.9 Anemia, unspecified; E86.0 Dehydration; E05.00 Thyrotoxicosis with diffuse goiter without thyrotoxic crisis or storm
CPT/HCPCS: 36415; 36416; 36556; 51702; 70450; 71045; 80048; 80053; 81003; 82140; 82533; 82553; 82805; 83605; 83690; 83735; 83880; 84443; 84484; 85025; 85610; 85730; 87040; 87804; 93005; 96365; 96366; 96367; 96368; 96374; 96375; A4216; J0131; J0692; J1100; J1650; J1720; J1956; J2060; J2920; J3370

== ENCOUNTER 2021-01-02 12:21 | Observation (INO) | payer MEDICAID, MEDICARE, OTHER ==
[~2021-01-02 12:21] MED LIST: Iopamidol-370 76% 500 ML 1 ML ONE
[2021-01-02] MEDS ORDERED: Hydrocortisone Sod Succ/PF 100 mg/2 ml Vial ONE (13:10)
[2021-01-02 13:12] LABS: #Eosinphils 0.2 thou/uL (0.0-0.7); #Lymphocytes 3.4 thou/uL (1.20-3.40); #Monocytes 0.6 thou/uL (0.11-0.59); #Neutrophils 2.8 thou/uL (1.40-6.50); %Basophils 0.7 % (0.0-1.0); %Eosinophils 2.4 % (0.0-10.0); %Monocytes 8.6 % (0.0-10.0); %Neutrophils 40.3 % (42.0-75.0); Hemoglobin 12.6 g/dL (12.0-16.0); Mean Corpuscular Volume 94.3 fL (78.0-98.0); Mean Platelet Volume 6.6 fL (7.4-10.4); Platelet Count 335 thou/uL (130-400); RBC Distribution Width 11.9 % (11.5-14.5); Red Blood Cell (RBC) Count 3.81 mill/uL (4.20-5.40)
[2021-01-02 13:14] LABS: Bacteria/HPF None Seen HPF (None Seen); Bilirubin Negative (Negative); Blood, Urine Trace (Negative); Clarity Clear (Clear); Glucose, Urine (Dipstick) Normal (Negative); Ketone, Urine Negative (Negative); Leukocyte Negative Leu/uL (Negative); Nitrite Negative (Negative); Protein, Urine (Dipstick) Negative (Neg-Trace); RBC/HPF 0-3 HPF (0-3); Specific Gravity, Urine 1.017 (1.002-1.036); Squamous Epithelial None Seen HPF (0-3); Urobilinogen Normal mg/dL (Less than 2); WBC/HPF 0-3 HPF (0-3); pH, Urine 5.5 (5.0-9.0)
[2021-01-02 13:30] LABS: ALT (SGPT) 10 U/L (8-55); AST (SGOT) 28 U/L (5-34); Albumin 3.5 g/dL (3.4-4.8); Alkaline Phosphatase 66 U/L (40-110); Anion Gap 10 mmol/L (10-20); BUN (Urea Nitrogen) 14 mg/dL (9.8-20.1); Bilirubin, Total 0.5 mg/dL (0.2-1.2); Calc. Creatinine Clearance 0 mL/min (70-130); Calcium 8.9 mg/dL (7.8-10.44); Carbon Dioxide 24 mmol/L (23-31); Chloride 106 mmol/L (98-107); Globulin 3.3 g/dL (2.4-3.5); Glucose 82 mg/dL (80-115); Potassium 3.8 mmol/L (3.5-5.1); Protein, Total 6.8 g/dL (5.8-8.1); Sodium 136 mmol/L (136-145)
[2021-01-02] MEDS ORDERED: Acetaminophen 325 MG TAB PO PRN (18:56)
[2021-01-02] MEDS ORDERED: Ondansetron PF 4 MG/2 ML Vial IVP PRN (18:56)
[2021-01-02 19:42] VITALS: BMI 18.8
[2021-01-02] MEDS: Hydrocortisone 10 mg Tablet PO SCH (21:11)
[2021-01-02] MEDS: Sodium Chloride 0.9% 1,000 ML IV SCH (21:12)
[2021-01-03 05:40] LABS: #Lymphocytes 1.6 thou/uL (1.20-3.40); #Monocytes 0.5 thou/uL (0.11-0.59); #Neutrophils 7.3 thou/uL (1.40-6.50); %Basophils 0.2 % (0.0-1.0); %Eosinophils 0.3 % (0.0-10.0); %Lymphocytes 16.7 % (21.0-51.0); %Monocytes 4.9 % (0.0-10.0); %Neutrophils 77.9 % (42.0-75.0); Hemoglobin 11.5 g/dL (12.0-16.0); Mean Corpuscular HGB CONC 35.1 g/dL (32.0-36.0); Mean Corpuscular Volume 94.1 fL (78.0-98.0); Mean Platelet Volume 7.2 fL (7.4-10.4); Platelet Count 305 thou/uL (130-400); Red Blood Cell (RBC) Count 3.48 mill/uL (4.20-5.40); White Blood Cell (WBC) Count 9.4 thou/uL (4.8-10.8)
[2021-01-03 05:53] LABS: Anion Gap 12 mmol/L (10-20); BUN (Urea Nitrogen) 10 mg/dL (9.8-20.1); Calc. Creatinine Clearance 53 mL/min (70-130); Calcium 8.7 mg/dL (7.8-10.44); Carbon Dioxide 21 mmol/L (23-31); Chloride 107 mmol/L (98-107); Glucose 111 mg/dL (80-115); Potassium 3.7 mmol/L (3.5-5.1); Sodium 136 mmol/L (136-145)
[2021-01-03] MEDS ORDERED: Levothyroxine Sodium 75 MCG TAB PO SCH (06:00)
[2021-01-03] MEDS ORDERED: Ferrous Sulfate 325 MG TAB PO SCH (08:00)
[2021-01-03] MEDS ORDERED: Fludrocortisone Acetate 0.1 MG TAB PO SCH (09:00)
[2021-01-03] MEDS: Hydrocortisone 10 mg Tablet PO SCH (09:33)
[2021-01-03] MEDS: Sodium Chloride 0.9% 1,000 ML IV SCH (09:36)
[2021-01-03 12:20] VITALS: BP 113/57; TEMP 98.1
[2021-01-03 12:34] LABS: SARS-CoV-2 PCR by NAA Not Detected (NotDetected)
== END 2021-01-03 12:46 | disposition home or self-care (01) ==
LOC: ERS 12:21 → 2SW 14:42
PROVIDERS: ADMIT Internal Medicine; ATTEND Internal Medicine
DX: I95.89 Other hypotension (principal); R55 Syncope and collapse; E27.1 Primary adrenocortical insufficiency; E05.00 Thyrotoxicosis with diffuse goiter without thyrotoxic crisis or storm; E44.0 Moderate protein-calorie malnutrition; Z68.1 Body mass index [BMI] 19.9 or less, adult; Z79.899 Other long term (current) drug therapy; Z20.822 Contact with and (suspected) exposure to COVID-19
CPT/HCPCS: 74177; 80048; 80053; 84484; 85025 ×2; 93005; 96374; 97139; 99285; U0003; U0005; 36415; 81003; 81015; G0378; J1720; J7050; Q9967

== ENCOUNTER 2021-02-22 09:55 | Inpatient (IN) | payer MEDICARE ==
[2021-02-22 10:56] LABS: #Basophils 0.1 thou/uL (0.0-0.2); #Lymphocytes 2.4 thou/uL (1.20-3.40); #Monocytes 0.9 thou/uL (0.11-0.59); #Neutrophils 5.4 thou/uL (1.40-6.50); %Basophils 0.6 % (0.0-1.0); %Eosinophils 0.5 % (0.0-10.0); %Lymphocytes 27.5 % (21.0-51.0); %Monocytes 10.3 % (0.0-10.0); %Neutrophils 61.1 % (42.0-75.0); Hemoglobin 14.1 g/dL (12.0-16.0); Mean Corpuscular Hemoglobin 30.3 pg (27.0-31.0); Mean Corpuscular Volume 91.8 fL (78.0-98.0); Mean Platelet Volume 7.5 fL (7.4-10.4); Platelet Count 217 thou/uL (130-400); RBC Distribution Width 12.2 % (11.5-14.5); Red Blood Cell (RBC) Count 4.67 mill/uL (4.20-5.40); White Blood Cell (WBC) Count 8.8 thou/uL (4.8-10.8)
[2021-02-22 11:22] LABS: ALT (SGPT) 157 U/L (8-55); AST (SGOT) 423 U/L (5-34); Albumin 4.2 g/dL (3.4-4.8); Alkaline Phosphatase 159 U/L (40-110); Anion Gap 18 mmol/L (10-20); BUN (Urea Nitrogen) 30 mg/dL (9.8-20.1); Calc. Creatinine Clearance 0 mL/min (70-130); Calcium 9.5 mg/dL (7.8-10.44); Carbon Dioxide 20 mmol/L (23-31); Chloride 98 mmol/L (98-107); Globulin 3.9 g/dL (2.4-3.5); Protein, Total 8.1 g/dL (5.8-8.1); Sodium 132 mmol/L (136-145)
[2021-02-22 11:26] LABS: Glucose 22 mg/dL (80-115)
[2021-02-22] MEDS ORDERED: Dextrose 50% Abboject 50 ML SYRINGE ONE (11:26)
[2021-02-22] MEDS ORDERED: Hydrocortisone Sod Succ/PF 100 mg/2 ml Vial ONE (12:15)
[2021-02-22 12:28] LABS: Bilirubin Negative (Negative); Blood, Urine Negative (Negative); Clarity Clear (Clear); Glucose, Urine (Dipstick) Normal (Negative); Ketone, Urine Trace mg/dL (Negative); Leukocyte Negative Leu/uL (Negative); Nitrite Negative (Negative); Protein, Urine (Dipstick) Negative (Neg-Trace); Specific Gravity, Urine 1.017 (1.002-1.036); Urobilinogen Normal mg/dL (Less than 2); pH, Urine 5.5 (5.0-9.0)
[2021-02-22] MEDS ORDERED: Ondansetron ODT 4 MG TAB SL PRN (14:00)
[2021-02-22] MEDS ORDERED: Acetaminophen 325 MG TAB PO PRN (14:00)
[2021-02-22] MEDS ORDERED: Dextrose 5 %-0.45 % NaCl 1,000 ML IV SCH (14:00)
[2021-02-22] MEDS ORDERED: Ondansetron PF 4 MG/2 ML Vial IVP PRN (14:00)
[2021-02-22] MEDS ORDERED: Dextrose 50% Abboject 50 ML SYRINGE SLOW IVP PRN (14:25)
[2021-02-22] MEDS: Dextrose 5 %-0.45 % NaCl 1,000 ML IV SCH (16:47)
[2021-02-23] MEDS: Hydrocortisone 10 mg Tablet PO SCH ×3 (01:38→20:54)
[2021-02-23 04:09] LABS: Band 10 % (5-11); Hemoglobin 11.2 g/dL (12.0-16.0); Lymphocytes 27 % (21-51); MDiff Complete? YES; Mean Corpuscular HGB CONC 34.7 g/dL (32.0-36.0); Mean Corpuscular Hemoglobin 31.9 pg (27.0-31.0); Mean Platelet Volume 7.4 fL (7.4-10.4); Monocytes 10 % (0-10); Neutrophil 53 % (42-75); Platelet Count 168 thou/uL (130-400); RBC Distribution Width 12.1 % (11.5-14.5); White Blood Cell (WBC) Count 4.5 thou/uL (4.8-10.8)
[2021-02-23 04:22] LABS: ALT (SGPT) 156 U/L (8-55); AST (SGOT) 306 U/L (5-34); Albumin 3.3 g/dL (3.4-4.8); Alkaline Phosphatase 160 U/L (40-110); Anion Gap 13 mmol/L (10-20); BUN (Urea Nitrogen) 17 mg/dL (9.8-20.1); Bilirubin, Total 0.5 mg/dL (0.2-1.2); Calc. Creatinine Clearance 44 mL/min (70-130); Calcium 7.9 mg/dL (7.8-10.44); Carbon Dioxide 18 mmol/L (23-31); Chloride 106 mmol/L (98-107); Globulin 2.8 g/dL (2.4-3.5); Glucose 114 mg/dL (80-115); Potassium 3.7 mmol/L (3.5-5.1); Protein, Total 6.1 g/dL (5.8-8.1); Sodium 133 mmol/L (136-145)
[2021-02-23] MEDS: Dextrose 5 %-0.45 % NaCl 1,000 ML IV SCH ×2 (04:46→17:30)
[2021-02-23] MEDS: Levothyroxine Sodium 75 MCG TAB PO SCH (06:26)
[2021-02-23 08:45] LABS: SARS-CoV-2 PCR by NAA DETECTED (NotDetected)
[2021-02-23] MEDS ORDERED: Enoxaparin Sodium 30 MG/0.3 ML SYRINGE SC SCH (09:00)
[2021-02-23] MEDS ORDERED: Enoxaparin Sodium 40 MG/0.4 ML SYRINGE SC SCH (10:45)
[2021-02-23] MEDS: Fludrocortisone Acetate 0.1 MG TAB PO SCH (10:48)
[2021-02-24] MEDS: Dextrose 5 %-0.45 % NaCl 1,000 ML IV SCH (05:33)
[2021-02-24] MEDS: Levothyroxine Sodium 75 MCG TAB PO SCH (05:38)
[2021-02-24 06:33] LABS: Hemoglobin 10.9 g/dL (12.0-16.0); Mean Corpuscular HGB CONC 33.9 g/dL (32.0-36.0); Mean Corpuscular Hemoglobin 31.6 pg (27.0-31.0); Mean Corpuscular Volume 93.3 fL (78.0-98.0); Mean Platelet Volume 7.7 fL (7.4-10.4); Platelet Count 164 thou/uL (130-400); RBC Distribution Width 12.4 % (11.5-14.5); Red Blood Cell (RBC) Count 3.46 mill/uL (4.20-5.40); White Blood Cell (WBC) Count 3.3 thou/uL (4.8-10.8)
[2021-02-24 06:55] LABS: Anion Gap 10 mmol/L (10-20); BUN (Urea Nitrogen) 8 mg/dL (9.8-20.1); Calc. Creatinine Clearance 64 mL/min (70-130); Calcium 8.2 mg/dL (7.8-10.44); Carbon Dioxide 24 mmol/L (23-31); Chloride 106 mmol/L (98-107); Glucose 110 mg/dL (80-115); Potassium 3.1 mmol/L (3.5-5.1); Sodium 137 mmol/L (136-145)
[2021-02-24] MEDS: Hydrocortisone 10 mg Tablet PO SCH ×2 (09:45→20:05)
[2021-02-24] MEDS: Fludrocortisone Acetate 0.1 MG TAB PO SCH (09:45)
[2021-02-24] MEDS: Enoxaparin Sodium 40 MG/0.4 ML SYRINGE SC SCH (14:16)
[2021-02-25 05:56] LABS: #Lymphocytes 1.6 thou/uL (1.20-3.40); #Monocytes 0.4 thou/uL (0.11-0.59); #Neutrophils 1.4 thou/uL (1.40-6.50); %Basophils 0.3 % (0.0-1.0); %Eosinophils 0.2 % (0.0-10.0); %Lymphocytes 46.4 % (21.0-51.0); %Monocytes 12.5 % (0.0-10.0); %Neutrophils 40.7 % (42.0-75.0); Hemoglobin 11.4 g/dL (12.0-16.0); Mean Corpuscular HGB CONC 33.7 g/dL (32.0-36.0); Mean Corpuscular Hemoglobin 31.4 pg (27.0-31.0); Mean Corpuscular Volume 93.2 fL (78.0-98.0); Mean Platelet Volume 7.8 fL (7.4-10.4); Platelet Count 173 thou/uL (130-400); RBC Distribution Width 12.4 % (11.5-14.5); Red Blood Cell (RBC) Count 3.62 mill/uL (4.20-5.40); White Blood Cell (WBC) Count 3.4 thou/uL (4.8-10.8)
[2021-02-25] MEDS: Levothyroxine Sodium 75 MCG TAB PO SCH (06:05)
[2021-02-25 06:07] VITALS: BMI 20.1
[2021-02-25 06:12] LABS: Anion Gap 8 mmol/L (10-20); BUN (Urea Nitrogen) 10 mg/dL (9.8-20.1); Calc. Creatinine Clearance 63 mL/min (70-130); Calcium 8.4 mg/dL (7.8-10.44); Carbon Dioxide 29 mmol/L (23-31); Chloride 105 mmol/L (98-107); Glucose 76 mg/dL (80-115); Potassium 3.1 mmol/L (3.5-5.1); Sodium 139 mmol/L (136-145)
[2021-02-25 08:42] VITALS: BP 129/73; TEMP 98.2
[2021-02-25] MEDS: Enoxaparin Sodium 40 MG/0.4 ML SYRINGE SC SCH (08:51)
[2021-02-25] MEDS: Fludrocortisone Acetate 0.1 MG TAB PO SCH (08:52)
[2021-02-25] MEDS: Hydrocortisone 10 mg Tablet PO SCH (08:52)
== END 2021-02-25 17:13 | disposition home or self-care (01) | DRG 643 ==
LOC: ERS 09:55 → ERHOLD 13:17 → IMCU/EMU 22:21 → T4-A 02-23 21:38
PROVIDERS: ADMIT Internal Medicine; ATTEND Internal Medicine
PROC: 8E0ZXY6 Isolation (ICD-10-PCS; principal; 2021-02-22)
DX: E27.2 Addisonian crisis (principal); U07.1 COVID-19; N17.9 Acute kidney failure, unspecified; E44.0 Moderate protein-calorie malnutrition; I10 Essential (primary) hypertension; E27.1 Primary adrenocortical insufficiency; E78.5 Hyperlipidemia, unspecified; E05.00 Thyrotoxicosis with diffuse goiter without thyrotoxic crisis or storm; I95.9 Hypotension, unspecified; E16.2 Hypoglycemia, unspecified; E03.9 Hypothyroidism, unspecified; E86.0 Dehydration; Z68.20 Body mass index [BMI] 20.0-20.9, adult; Z90.49 Acquired absence of other specified parts of digestive tract; Z79.899 Other long term (current) drug therapy
CPT/HCPCS: 36415; 36416; 71045; 80048; 80053; 81003; 82533; 84484; 85025; 85027; 86140; 93005; 94760; J1650; J1720; J7042; U0003; U0005

== ENCOUNTER 2021-08-02 10:22 | Emergency (ER) | payer MEDICARE ==
[2021-08-02 11:54] LABS: #Eosinphils 0.2 thou/uL (0.0-0.7); #Lymphocytes 2.3 thou/uL (1.20-3.40); #Monocytes 0.5 thou/uL (0.11-0.59); #Neutrophils 3.3 thou/uL (1.40-6.50); %Basophils 0.6 % (0.0-1.0); %Eosinophils 3.5 % (0.0-10.0); %Lymphocytes 36.3 % (21.0-51.0); %Monocytes 7.3 % (0.0-10.0); %Neutrophils 52.4 % (42.0-75.0); Hemoglobin 11.7 g/dL (12.0-16.0); Mean Corpuscular HGB CONC 33.2 g/dL (32.0-36.0); Mean Corpuscular Hemoglobin 31.2 pg (27.0-31.0); Mean Corpuscular Volume 93.9 fL (78.0-98.0); Mean Platelet Volume 6.9 fL (7.4-10.4); Platelet Count 279 thou/uL (130-400); RBC Distribution Width 12.4 % (11.5-14.5); Red Blood Cell (RBC) Count 3.77 mill/uL (4.20-5.40); White Blood Cell (WBC) Count 6.3 thou/uL (4.8-10.8)
[2021-08-02 12:17] LABS: ALT (SGPT) 22 U/L (8-55); AST (SGOT) 34 U/L (5-34); Albumin 3.7 g/dL (3.4-4.8); Alkaline Phosphatase 76 U/L (40-110); Anion Gap 12 mmol/L (10-20); BUN (Urea Nitrogen) 17 mg/dL (9.8-20.1); Bilirubin, Total 0.7 mg/dL (0.2-1.2); Calc. Creatinine Clearance 0 mL/min (70-130); Calcium 9.2 mg/dL (7.8-10.44); Carbon Dioxide 23 mmol/L (23-31); Chloride 99 mmol/L (98-107); Globulin 3.2 g/dL (2.4-3.5); Glucose 105 mg/dL (80-115); Potassium 3.9 mmol/L (3.5-5.1); Protein, Total 6.9 g/dL (5.8-8.1); Sodium 130 mmol/L (136-145)
== END 2021-08-02 16:45 | disposition home or self-care (01) ==
LOC: ERS 10:22
DX: R42 Dizziness and giddiness (principal); Z79.899 Other long term (current) drug therapy
CPT/HCPCS: 36415; 71045; 80053; 82024; 82533; 84484; 85025; 93005

== ENCOUNTER 2021-10-13 17:54 | Inpatient (IN) | payer MEDICAID, MEDICARE, OTHER ==
[2021-10-13 18:58] LABS: #Lymphocytes 1.8 thou/uL (1.20-3.40); #Monocytes 1.1 thou/uL (0.11-0.59); #Neutrophils 4.5 thou/uL (1.40-6.50); %Basophils 0.6 % (0.0-1.0); %Eosinophils 0.3 % (0.0-10.0); %Lymphocytes 24.3 % (21.0-51.0); %Monocytes 14.4 % (0.0-10.0); %Neutrophils 60.3 % (42.0-75.0); Hemoglobin 11.3 g/dL (12.0-16.0); Mean Corpuscular HGB CONC 34.2 g/dL (32.0-36.0); Mean Corpuscular Volume 93.4 fL (78.0-98.0); Mean Platelet Volume 7.1 fL (7.4-10.4); Platelet Count 245 thou/uL (130-400); RBC Distribution Width 12.2 % (11.5-14.5); Red Blood Cell (RBC) Count 3.54 mill/uL (4.20-5.40); White Blood Cell (WBC) Count 7.5 thou/uL (4.8-10.8)
[2021-10-13 19:28] LABS: ALT (SGPT) 42 U/L (8-55); AST (SGOT) 71 U/L (5-34); Albumin 3.3 g/dL (3.4-4.8); Alkaline Phosphatase 123 U/L (40-110); Anion Gap 16 mmol/L (10-20); BUN (Urea Nitrogen) 21 mg/dL (9.8-20.1); Bilirubin, Total 1.1 mg/dL (0.2-1.2); Calc. Creatinine Clearance 0 mL/min (70-130); Calcium 8.5 mg/dL (7.8-10.44); Carbon Dioxide 19 mmol/L (23-31); Chloride 102 mmol/L (98-107); Estimated GFR 75; Globulin 3.1 g/dL (2.4-3.5); Glucose 110 mg/dL (80-115); Lipase 13 U/L (8-78); Potassium 3.8 mmol/L (3.5-5.1); Protein, Total 6.4 g/dL (5.8-8.1); Sodium 133 mmol/L (136-145)
[2021-10-13] MEDS ORDERED: Magnesium 2 GM/50 ML BAG (IN WATER) ONE (19:48)
[2021-10-13] MEDS ORDERED: Hydrocortisone Sod Succ/PF 100 mg/2 ml Vial ONE (19:48)
[2021-10-13] MEDS ORDERED: Ondansetron ODT 4 MG TAB SL PRN (23:00)
[2021-10-13] MEDS ORDERED: Ondansetron PF 4 MG/2 ML Vial IVP PRN (23:00)
[2021-10-13] MEDS: Dextrose 5 %-0.45 % NaCl 1,000 ML IV SCH (23:10)
[2021-10-13 23:22] VITALS: BMI 17.7
[2021-10-14] MEDS ORDERED: Acetaminophen 325 MG TAB PO PRN (00:23)
[2021-10-14] MEDS ORDERED: Dextrose 5% in Water 1,000 ML IV PRN (00:26)
[2021-10-14] MEDS ORDERED: Dextrose 50% Abboject 50 ML SYRINGE SLOW IVP PRN (00:26)
[2021-10-14] MEDS: Sodium Chloride 0.9% 1,000 ML IV SCH ×2 (00:35→10:57)
[2021-10-14 01:14] LABS: SARS-CoV-2 NAA Rapid Test DETECTED (NotDetected)
[2021-10-14 01:37] LABS: Magnesium 2.1 mg/dL (1.6-2.6)
[2021-10-14 03:00] LABS: Free T4 (Free Thyroxine) 1.32 ng/dL (0.70-1.48)
[2021-10-14 03:53] LABS: #Lymphocytes 0.8 thou/uL (1.20-3.40); #Monocytes 0.4 thou/uL (0.11-0.59); #Neutrophils 3.4 thou/uL (1.40-6.50); %Basophils 0.3 % (0.0-1.0); %Eosinophils 0.2 % (0.0-10.0); %Lymphocytes 18.4 % (21.0-51.0); %Monocytes 7.9 % (0.0-10.0); %Neutrophils 73.3 % (42.0-75.0); Hemoglobin 10.6 g/dL (12.0-16.0); Mean Corpuscular HGB CONC 34.4 g/dL (32.0-36.0); Mean Corpuscular Hemoglobin 32.5 pg (27.0-31.0); Mean Corpuscular Volume 94.7 fL (78.0-98.0); Mean Platelet Volume 7.4 fL (7.4-10.4); Platelet Count 243 thou/uL (130-400); RBC Distribution Width 12.2 % (11.5-14.5); Red Blood Cell (RBC) Count 3.26 mill/uL (4.20-5.40); White Blood Cell (WBC) Count 4.6 thou/uL (4.8-10.8)
[2021-10-14 04:08] LABS: ALT (SGPT) 36 U/L (8-55); AST (SGOT) 51 U/L (5-34); Albumin 3.1 g/dL (3.4-4.8); Alkaline Phosphatase 107 U/L (40-110); Anion Gap 13 mmol/L (10-20); BUN (Urea Nitrogen) 17 mg/dL (9.8-20.1); Bilirubin, Total 0.9 mg/dL (0.2-1.2); Calc. Creatinine Clearance 54 mL/min (70-130); Carbon Dioxide 17 mmol/L (23-31); Chloride 108 mmol/L (98-107); Estimated GFR 93; Globulin 2.9 g/dL (2.4-3.5); Glucose 154 mg/dL (80-115); Magnesium 2.1 mg/dL (1.6-2.6); Potassium 3.5 mmol/L (3.5-5.1); Sodium 134 mmol/L (136-145)
[2021-10-14] MEDS: Levothyroxine Sodium 75 MCG TAB PO SCH (06:48)
[2021-10-14] MEDS: Hydrocortisone 10 mg Tablet PO SCH (07:37)
[2021-10-14] MEDS: Enoxaparin Sodium 40 MG/0.4 ML SYRINGE SC SCH (07:37)
[2021-10-14] MEDS: Zinc Sulfate 220 MG CAP PO SCH (07:37)
[2021-10-14] MEDS: Ascorbic Acid 500 mg Chewable Tablet PO SCH (07:37)
[2021-10-14] MEDS: Fludrocortisone Acetate 0.1 MG TAB PO SCH (07:37)
[2021-10-14 16:14] LABS: Bacteria/HPF 4+ HPF (None Seen); Bilirubin Negative (Negative); Blood, Urine 1+ (Negative); Clarity Clear (Clear); Glucose, Urine (Dipstick) Normal (Negative); Ketone, Urine 40 mg/dL (Negative); Leukocyte 250 Leu/uL (Negative); Nitrite 1+ (Negative); Protein, Urine (Dipstick) Negative (Neg-Trace); RBC/HPF 0-3 HPF (0-3); Specific Gravity, Urine 1.012 (1.002-1.036); Squamous Epithelial 0-3 HPF (0-3); Urobilinogen Normal mg/dL (Less than 2)
[2021-10-14] MEDS: Dextrose 5 %-0.45 % NaCl 1,000 ML IV SCH (16:14)
[2021-10-14 16:16] LABS: Urine Culture Reflex Yes Yes
[2021-10-15] MEDS: Dextrose 5 %-0.45 % NaCl 1,000 ML IV SCH ×2 (01:40→17:02)
[2021-10-15 04:25] LABS: #Basophils 0.1 thou/uL (0.0-0.2); #Eosinphils 0.1 thou/uL (0.0-0.7); #Lymphocytes 1.6 thou/uL (1.20-3.40); #Monocytes 0.7 thou/uL (0.11-0.59); #Neutrophils 3.6 thou/uL (1.40-6.50); %Basophils 0.9 % (0.0-1.0); %Eosinophils 2.4 % (0.0-10.0); %Lymphocytes 26.9 % (21.0-51.0); %Monocytes 11.3 % (0.0-10.0); %Neutrophils 58.6 % (42.0-75.0); Hemoglobin 10.2 g/dL (12.0-16.0); Mean Corpuscular HGB CONC 34.1 g/dL (32.0-36.0); Mean Corpuscular Hemoglobin 32.1 pg (27.0-31.0); Mean Corpuscular Volume 94.1 fL (78.0-98.0); Mean Platelet Volume 7.5 fL (7.4-10.4); Platelet Count 219 thou/uL (130-400); RBC Distribution Width 12.4 % (11.5-14.5); Red Blood Cell (RBC) Count 3.18 mill/uL (4.20-5.40); White Blood Cell (WBC) Count 6.1 thou/uL (4.8-10.8)
[2021-10-15 04:43] LABS: ALT (SGPT) 26 U/L (8-55); AST (SGOT) 31 U/L (5-34); Alkaline Phosphatase 89 U/L (40-110); Anion Gap 11 mmol/L (10-20); BUN (Urea Nitrogen) 8 mg/dL (9.8-20.1); Bilirubin, Total 0.9 mg/dL (0.2-1.2); Calc. Creatinine Clearance 66 mL/min (70-130); Calcium 8.1 mg/dL (7.8-10.44); Carbon Dioxide 21 mmol/L (23-31); Chloride 109 mmol/L (98-107); Estimated GFR 98; Globulin 2.8 g/dL (2.4-3.5); Glucose 117 mg/dL (80-115); Magnesium 1.7 mg/dL (1.6-2.6); Protein, Total 5.8 g/dL (5.8-8.1); Sodium 138 mmol/L (136-145)
[2021-10-15] MEDS: Levothyroxine Sodium 75 MCG TAB PO SCH (05:27)
[2021-10-15] MEDS: Zinc Sulfate 220 MG CAP PO SCH (08:42)
[2021-10-15] MEDS: Fludrocortisone Acetate 0.1 MG TAB PO SCH (08:42)
[2021-10-15] MEDS: Ascorbic Acid 500 mg Chewable Tablet PO SCH (08:42)
[2021-10-15] MEDS: Enoxaparin Sodium 40 MG/0.4 ML SYRINGE SC SCH (08:42)
[2021-10-15] MEDS: Hydrocortisone 10 mg Tablet PO SCH (08:42)
[2021-10-15] MEDS ORDERED: Potassium Chloride 20 MEQ TAB PO SCH (15:30)
[2021-10-15] MEDS: Potassium Chloride 20 MEQ TAB PO SCH (17:02)
[2021-10-16] MEDS: Dextrose 5 %-0.45 % NaCl 1,000 ML IV SCH ×2 (04:57→21:03)
[2021-10-16] MEDS: Levothyroxine Sodium 75 MCG TAB PO SCH (06:33)
[2021-10-16] MEDS: Zinc Sulfate 220 MG CAP PO SCH (08:39)
[2021-10-16] MEDS: Enoxaparin Sodium 40 MG/0.4 ML SYRINGE SC SCH (08:39)
[2021-10-16] MEDS: Hydrocortisone 10 mg Tablet PO SCH (08:39)
[2021-10-16] MEDS: Potassium Chloride 20 MEQ TAB PO SCH ×2 (08:39→15:51)
[2021-10-16] MEDS: Ascorbic Acid 500 mg Chewable Tablet PO SCH (08:39)
[2021-10-16] MEDS: Fludrocortisone Acetate 0.1 MG TAB PO SCH (08:39)
[2021-10-16 09:21] LABS: #Basophils 0.1 thou/uL (0.0-0.2); #Eosinphils 0.1 thou/uL (0.0-0.7); #Lymphocytes 2.5 thou/uL (1.20-3.40); #Monocytes 0.7 thou/uL (0.11-0.59); #Neutrophils 2.9 thou/uL (1.40-6.50); %Basophils 1.2 % (0.0-1.0); %Eosinophils 1.7 % (0.0-10.0); %Lymphocytes 39.3 % (21.0-51.0); %Monocytes 10.9 % (0.0-10.0); Hemoglobin 11.9 g/dL (12.0-16.0); Mean Corpuscular HGB CONC 33.7 g/dL (32.0-36.0); Mean Corpuscular Hemoglobin 31.7 pg (27.0-31.0); Mean Platelet Volume 7.2 fL (7.4-10.4); Platelet Count 259 thou/uL (130-400); RBC Distribution Width 12.1 % (11.5-14.5); Red Blood Cell (RBC) Count 3.76 mill/uL (4.20-5.40); White Blood Cell (WBC) Count 6.3 thou/uL (4.8-10.8)
[2021-10-16 09:40] LABS: Anion Gap 11 mmol/L (10-20); BUN (Urea Nitrogen) 5 mg/dL (9.8-20.1); Calc. Creatinine Clearance 62 mL/min (70-130); Calcium 7.8 mg/dL (7.8-10.44); Carbon Dioxide 19 mmol/L (23-31); Chloride 104 mmol/L (98-107); Estimated GFR 97; Glucose 90 mg/dL (80-115); Magnesium 1.3 mg/dL (1.6-2.6); Potassium 3.3 mmol/L (3.5-5.1); Sodium 131 mmol/L (136-145)
[2021-10-16] MEDS ORDERED: Magnesium 2 GM/50 ML(in water) 2 GM in Premix Bag 1 BAG IVPB SCH (10:45)
[2021-10-16] MEDS: cefTRIAXone\\ROCEPHIN 1 GM in Sodium Chloride 0.9% 100 ML IVPB SCH (15:55)
[2021-10-17] MEDS: Levothyroxine Sodium 75 MCG TAB PO SCH (06:56)
[2021-10-17 07:05] LABS: Anion Gap 9 mmol/L (10-20); BUN (Urea Nitrogen) 5 mg/dL (9.8-20.1); Calc. Creatinine Clearance 62 mL/min (70-130); Calcium 7.9 mg/dL (7.8-10.44); Carbon Dioxide 21 mmol/L (23-31); Chloride 111 mmol/L (98-107); Estimated GFR 97; Glucose 97 mg/dL (80-115); Magnesium 1.8 mg/dL (1.6-2.6); Potassium 3.7 mmol/L (3.5-5.1); Sodium 137 mmol/L (136-145)
[2021-10-17] MEDS: Ascorbic Acid 500 mg Chewable Tablet PO SCH (08:41)
[2021-10-17] MEDS: Zinc Sulfate 220 MG CAP PO SCH (08:41)
[2021-10-17] MEDS: Potassium Chloride 20 MEQ TAB PO SCH ×2 (08:41→16:17)
[2021-10-17] MEDS: Dextrose 5 %-0.45 % NaCl 1,000 ML IV SCH ×2 (08:43→21:10)
[2021-10-17] MEDS: Enoxaparin Sodium 40 MG/0.4 ML SYRINGE SC SCH (08:44)
[2021-10-17] MEDS: Hydrocortisone 10 mg Tablet PO SCH (08:49)
[2021-10-17] MEDS: Fludrocortisone Acetate 0.1 MG TAB PO SCH (08:49)
[2021-10-17] MEDS: cefTRIAXone\\ROCEPHIN 1 GM in Sodium Chloride 0.9% 100 ML IVPB SCH (14:32)
[2021-10-17] MEDS ORDERED: Hydrocortisone 10 mg Tablet PO SCH ×2 (21:00→21:45)
[2021-10-18 06:24] LABS: Anion Gap 12 mmol/L (10-20); BUN (Urea Nitrogen) 5 mg/dL (9.8-20.1); Calc. Creatinine Clearance 66 mL/min (70-130); Carbon Dioxide 19 mmol/L (23-31); Chloride 111 mmol/L (98-107); Estimated GFR 98; Glucose 96 mg/dL (80-115); Potassium 3.6 mmol/L (3.5-5.1); Sodium 138 mmol/L (136-145)
[2021-10-18] MEDS: Levothyroxine Sodium 75 MCG TAB PO SCH (06:53)
[2021-10-18] MEDS: Potassium Chloride 20 MEQ TAB PO SCH ×2 (07:55→16:50)
[2021-10-18] MEDS: Hydrocortisone 10 mg Tablet PO SCH ×2 (07:55→19:32)
[2021-10-18] MEDS: Fludrocortisone Acetate 0.1 MG TAB PO SCH (07:56)
[2021-10-18] MEDS: Zinc Sulfate 220 MG CAP PO SCH (07:56)
[2021-10-18] MEDS: Ascorbic Acid 500 mg Chewable Tablet PO SCH (07:56)
[2021-10-18] MEDS: Enoxaparin Sodium 40 MG/0.4 ML SYRINGE SC SCH (07:56)
[2021-10-18] MEDS: Dextrose 5 %-0.45 % NaCl 1,000 ML IV SCH (11:06)
[2021-10-18] MEDS: cefTRIAXone\\ROCEPHIN 1 GM in Sodium Chloride 0.9% 100 ML IVPB SCH (13:52)
[2021-10-18] MEDS ORDERED: Dextrose 5 %-0.45 % NaCl 1,000 ML IV SCH (16:36)
[2021-10-19] MEDS: Levothyroxine Sodium 75 MCG TAB PO SCH (05:12)
[2021-10-19 07:38] LABS: Anion Gap 11 mmol/L (10-20); BUN (Urea Nitrogen) 5 mg/dL (9.8-20.1); Calc. Creatinine Clearance 60 mL/min (70-130); Calcium 8.6 mg/dL (7.8-10.44); Carbon Dioxide 21 mmol/L (23-31); Chloride 111 mmol/L (98-107); Estimated GFR 96; Glucose 89 mg/dL (80-115); Magnesium 1.6 mg/dL (1.6-2.6); Potassium 3.7 mmol/L (3.5-5.1); Sodium 139 mmol/L (136-145)
[2021-10-19] MEDS: Ascorbic Acid 500 mg Chewable Tablet PO SCH (08:16)
[2021-10-19] MEDS: Hydrocortisone 10 mg Tablet PO SCH ×2 (08:16→20:22)
[2021-10-19] MEDS: Enoxaparin Sodium 40 MG/0.4 ML SYRINGE SC SCH (08:16)
[2021-10-19] MEDS: Potassium Chloride 20 MEQ TAB PO SCH ×2 (08:16→16:23)
[2021-10-19] MEDS: Zinc Sulfate 220 MG CAP PO SCH (08:17)
[2021-10-19] MEDS: Fludrocortisone Acetate 0.1 MG TAB PO SCH (08:17)
[2021-10-19] MEDS ORDERED: Magnesium 2 GM/50 ML(in water) 2 GM in Premix Bag 1 BAG IVPB SCH (08:30)
[2021-10-19] MEDS: cefTRIAXone\\ROCEPHIN 1 GM in Sodium Chloride 0.9% 100 ML IVPB SCH (15:19)
[2021-10-19 20:45] VITALS: BP 104/68; TEMP 97.8
[2021-10-20] MEDS: Levothyroxine Sodium 75 MCG TAB PO SCH (05:46)
[2021-10-20] MEDS: Potassium Chloride 20 MEQ TAB PO SCH ×2 (09:32→15:31)
[2021-10-20] MEDS: Hydrocortisone 10 mg Tablet PO SCH (09:32)
[2021-10-20] MEDS: Zinc Sulfate 220 MG CAP PO SCH (09:33)
[2021-10-20] MEDS: Ascorbic Acid 500 mg Chewable Tablet PO SCH (09:33)
[2021-10-20] MEDS: Fludrocortisone Acetate 0.1 MG TAB PO SCH (09:33)
[2021-10-20] MEDS: Enoxaparin Sodium 40 MG/0.4 ML SYRINGE SC SCH (09:41)
[2021-10-20] MEDS: cefTRIAXone\\ROCEPHIN 1 GM in Sodium Chloride 0.9% 100 ML IVPB SCH (15:31)
== END 2021-10-20 18:07 | disposition home or self-care (01) | DRG 643 ==
LOC: ERS 17:54 → IMCU/EMU 21:45 → T4-A 10-15 19:43
PROVIDERS: ADMIT Internal Medicine; ATTEND Internal Medicine
PROC: 8E0ZXY6 Isolation (ICD-10-PCS; principal; 2021-10-13)
DX: E27.2 Addisonian crisis (principal); G93.41 Metabolic encephalopathy; U07.1 COVID-19; E87.1 Hypo-osmolality and hyponatremia; E44.0 Moderate protein-calorie malnutrition; N39.0 Urinary tract infection, site not specified; Z68.1 Body mass index [BMI] 19.9 or less, adult; E03.9 Hypothyroidism, unspecified; D64.9 Anemia, unspecified; E16.2 Hypoglycemia, unspecified; B96.20 Unspecified Escherichia coli [E. coli] as the cause of diseases classified elsewhere; Z90.49 Acquired absence of other specified parts of digestive tract; Z79.899 Other long term (current) drug therapy
CPT/HCPCS: 36415; 36416; 70450; 71045; 80048; 80053; 81001; 82024; 82533; 83690; 83735; 84439; 84443; 84481; 85025; 87077; 87086; 87186; 93005; 96374; 96375; J0696; J1650; J1720; J3475; J3490; J7042; J7050; U0002

== ENCOUNTER 2022-09-14 11:01 | Inpatient (IN) | payer OTHER, MEDICAID ==
[2022-09-14 11:29] LABS: #Eosinphils 0.1 thou/uL (0.0-0.7); #Monocytes 1.4 thou/uL (0.11-0.59); #Neutrophils 6.2 thou/uL (1.40-6.50); %Basophils 0.4 % (0.0-1.0); %Eosinophils 0.8 % (0.0-10.0); %Lymphocytes 19.2 % (21.0-51.0); %Monocytes 14.2 % (0.0-10.0); Hematocrit 31.6 % (36.0-47.0); Hemoglobin 11.3 g/dL (12.0-16.0); Mean Corpuscular HGB CONC 35.8 g/dL (32.0-36.0); Mean Corpuscular Hemoglobin 31.5 pg (27.0-31.0); Mean Platelet Volume 9.4 fL (7.4-10.4); Platelet Count 311 10x3/uL (130-400); RBC Distribution Width 12.9 % (11.5-14.5); Red Blood Cell (RBC) Count 3.59 mill/uL (4.20-5.40); White Blood Cell (WBC) Count 9.6 10x3/uL (4.8-10.8)
[2022-09-14] MEDS ORDERED: Hydrocortisone Sod Succ/PF 100 mg/2 ml Vial ONE (11:29)
[2022-09-14 11:47] LABS: ALT (SGPT) 37 U/L (8-55); AST (SGOT) 102 U/L (5-34); Albumin 3.6 g/dL (3.4-4.8); Alkaline Phosphatase 95 U/L (40-110); Anion Gap 10 mmol/L (10-20); BUN (Urea Nitrogen) 22 mg/dL (9.8-20.1); Bilirubin, Total 1.1 mg/dL (0.2-1.2); Calc. Creatinine Clearance 0 mL/min (70-130); Calcium 9.2 mg/dL (7.8-10.44); Carbon Dioxide 22 mmol/L (23-31); Chloride 98 mmol/L (98-107); Estimated GFR 58; Globulin 3.6 g/dL (2.4-3.5); Glucose 93 mg/dL (80-115); Potassium 4.2 mmol/L (3.5-5.1); Protein, Total 7.2 g/dL (5.8-8.1); Sodium 126 mmol/L (136-145)
[2022-09-14 11:48] LABS: Bilirubin Negative (Negative); Blood, Urine Trace (Negative); CAUTI Indications for Culture Alt mental st,lethar; Clarity Turbid (Clear); Glucose, Urine (Dipstick) Normal (Negative); Ketone, Urine Negative (Negative); Leukocyte 500 Leu/uL (Negative); Nitrite 1+ (Negative); Protein, Urine (Dipstick) Negative (Neg-Trace); RBC/HPF 0-3 HPF (0-3); Specific Gravity, Urine 1.013 (1.002-1.036); Squamous Epithelial None Seen HPF (0-3); Urobilinogen Normal mg/dL (Less than 2)
[2022-09-14 12:11] LABS: SARS-CoV-2 NAA Rapid Test Not Detected (NotDetected)
[2022-09-14 12:11] LABS: Bacteria/HPF 4+ HPF (None Seen); WBC/HPF 21-50 HPF (0-3)
[2022-09-14 12:12] LABS: Urine Culture Reflex Yes Yes
[2022-09-14] MEDS ORDERED: cefTRIAXone (ROCEPHIN) 1 GM VIAL ONE (12:26)
[2022-09-14] MEDS ORDERED: Acetaminophen 325 MG TAB PO PRN (12:38)
[2022-09-14] MEDS ORDERED: Ondansetron PF 4 MG/2 ML Vial IVP PRN (12:38)
[2022-09-14 14:47] LABS: Troponin I Less than 0.010 ng/mL (< 0.028)
[2022-09-14] MEDS: Sodium Chloride 0.9% 1,000 ML IV SCH ×2 (17:06→21:20)
[2022-09-14 17:31] VITALS: BMI 18.2
[2022-09-14 17:39] LABS: Troponin I Less than 0.010 ng/mL (< 0.028)
[2022-09-14] MEDS: Hydrocortisone Sod Succ/PF 100 mg/2 ml Vial IVP SCH (18:02)
[2022-09-15] MEDS: Hydrocortisone Sod Succ/PF 100 mg/2 ml Vial IVP SCH ×5 (03:10→23:46)
[2022-09-15 03:33] LABS: #Neutrophils 7.3 thou/uL (1.40-6.50); %Basophils 0.3 % (0.0-1.0); %Eosinophils 0.1 % (0.0-10.0); %Lymphocytes 14.2 % (21.0-51.0); %Monocytes 9.8 % (0.0-10.0); %Neutrophils 75.3 % (42.0-75.0); Hematocrit 30.3 % (36.0-47.0); Hemoglobin 10.3 g/dL (12.0-16.0); Mean Corpuscular Hemoglobin 31.1 pg (27.0-31.0); Mean Platelet Volume 9.6 fL (7.4-10.4); Platelet Count 271 10x3/uL (130-400); RBC Distribution Width 13.1 % (11.5-14.5); Red Blood Cell (RBC) Count 3.31 mill/uL (4.20-5.40); White Blood Cell (WBC) Count 9.7 10x3/uL (4.8-10.8)
[2022-09-15 03:38] LABS: Mean Corpuscular Volume 91.5 fl (78.0-98.0)
[2022-09-15 03:57] LABS: ALT (SGPT) 43 U/L (8-55); AST (SGOT) 80 U/L (5-34); Albumin 3.1 g/dL (3.4-4.8); Alkaline Phosphatase 92 U/L (40-110); Anion Gap 11 mmol/L (10-20); BUN (Urea Nitrogen) 16 mg/dL (9.8-20.1); Bilirubin, Total 0.7 mg/dL (0.2-1.2); Calc. Creatinine Clearance 46 mL/min (70-130); Calcium 8.2 mg/dL (7.8-10.44); Carbon Dioxide 17 mmol/L (23-31); Chloride 109 mmol/L (98-107); Estimated GFR 76; Glucose 90 mg/dL (80-115); Magnesium 1.5 mg/dL (1.6-2.6); Potassium 3.9 mmol/L (3.5-5.1); Protein, Total 6.1 g/dL (5.8-8.1); Sodium 133 mmol/L (136-145)
[2022-09-15] MEDS: Sodium Chloride 0.9% 1,000 ML IV SCH (05:48)
[2022-09-15] MEDS: Levothyroxine Sodium 75 MCG TAB PO SCH (06:32)
[2022-09-15] MEDS: Fludrocortisone Acetate 0.1 MG TAB PO SCH (09:11)
[2022-09-15] MEDS: Multivit, Therapeutic 1 TAB PO SCH (09:11)
[2022-09-15] MEDS ORDERED: Magnesium Sulfate 3 GM in Sodium Chloride 0.9% 250 ML 250 ML IVPB SCH (09:45)
[2022-09-15] MEDS: Lactated Ringer's 1,000 ML IV SCH ×3 (09:59→22:16)
[2022-09-15] MEDS: cefTRIAXone\\ROCEPHIN 1 GM in Sodium Chloride 0.9% 100 ML IVPB SCH (13:28)
[2022-09-16 04:31] LABS: #Monocytes 0.5 thou/uL (0.11-0.59); %Basophils 0.3 % (0.0-1.0); %Lymphocytes 16.2 % (21.0-51.0); %Monocytes 6.6 % (0.0-10.0); Hematocrit 27.6 % (36.0-47.0); Hemoglobin 9.5 g/dL (12.0-16.0); Mean Corpuscular HGB CONC 34.4 g/dL (32.0-36.0); Mean Corpuscular Volume 90.2 fl (78.0-98.0); Mean Platelet Volume 10.2 fL (7.4-10.4); Platelet Count 262 10x3/uL (130-400); RBC Distribution Width 13.5 % (11.5-14.5); Red Blood Cell (RBC) Count 3.06 mill/uL (4.20-5.40); White Blood Cell (WBC) Count 7.9 10x3/uL (4.8-10.8)
[2022-09-16 04:57] LABS: Anion Gap 11 mmol/L (10-20); BUN (Urea Nitrogen) 16 mg/dL (9.8-20.1); Calc. Creatinine Clearance 46 mL/min (70-130); Calcium 8.1 mg/dL (7.8-10.44); Carbon Dioxide 17 mmol/L (23-31); Chloride 112 mmol/L (98-107); Estimated GFR 76; Glucose 115 mg/dL (80-115); Magnesium 2.1 mg/dL (1.6-2.6); Potassium 3.4 mmol/L (3.5-5.1); Sodium 137 mmol/L (136-145)
[2022-09-16] MEDS: Hydrocortisone Sod Succ/PF 100 mg/2 ml Vial IVP SCH ×2 (05:16→13:41)
[2022-09-16] MEDS: Levothyroxine Sodium 75 MCG TAB PO SCH (05:16)
[2022-09-16] MEDS ORDERED: Potassium Chloride 20 MEQ TAB PO SCH (08:00)
[2022-09-16] MEDS: Multivit, Therapeutic 1 TAB PO SCH (08:40)
[2022-09-16] MEDS ORDERED: Sodium Bicarbonate Tab 325 MG TAB PO SCH (09:00)
[2022-09-16] MEDS: Fludrocortisone Acetate 0.1 MG TAB PO SCH (09:32)
[2022-09-16 12:53] VITALS: BP 146/70; TEMP 97.7
[2022-09-16] MEDS: cefTRIAXone\\ROCEPHIN 1 GM in Sodium Chloride 0.9% 100 ML IVPB SCH (13:41)
== END 2022-09-16 14:03 | disposition home or self-care (01) | DRG 643 ==
LOC: ERS 11:01 → ERHOLD 12:26 → 2NO 15:37
PROVIDERS: ADMIT Internal Medicine Geriatric Medicine; ATTEND Internal Medicine Geriatric Medicine
DX: E27.2 Addisonian crisis (principal); G93.41 Metabolic encephalopathy; E87.1 Hypo-osmolality and hyponatremia; N30.00 Acute cystitis without hematuria; E87.20 Acidosis, unspecified; E27.1 Primary adrenocortical insufficiency; E05.00 Thyrotoxicosis with diffuse goiter without thyrotoxic crisis or storm; E03.9 Hypothyroidism, unspecified; E86.0 Dehydration; I95.9 Hypotension, unspecified; E87.8 Other disorders of electrolyte and fluid balance, not elsewhere classified; Z20.822 Contact with and (suspected) exposure to COVID-19; Z90.49 Acquired absence of other specified parts of digestive tract; Z79.899 Other long term (current) drug therapy
CPT/HCPCS: 36415; 36416; 51701; 70450; 71045; 80048; 80053; 81001; 82024; 82533; 83605; 83735; 83880; 84145; 84439; 84443; 84484; 85025; 87040; 87077; 87086; 87186; 93005; 96361; 96365; 96375; J0696; J1650; J1720; J3475; J3490; J7050; J7120

== ENCOUNTER 2022-12-20 08:13 | Inpatient (IN) | payer OTHER, MEDICAID ==
[2022-12-20] MEDS ORDERED: Hydrocortisone Sod Succ/PF 100 mg/2 ml Vial ONE (08:46)
[2022-12-20] MEDS ORDERED: Cefepime 2 GM VIAL ONE (08:52)
[2022-12-20] MEDS ORDERED: Sodium Chloride 0.9% 100 ML ONE (08:53)
[2022-12-20 09:15] LABS: #Monocytes 1.7 thou/uL (0.11-0.59); #Neutrophils 7.8 thou/uL (1.40-6.50); %Basophils 0.2 % (0.0-1.0); %Eosinophils 0.3 % (0.0-10.0); %Monocytes 14.9 % (0.0-10.0); %Neutrophils 69.1 % (42.0-75.0); Hematocrit 31.8 % (36.0-47.0); Hemoglobin 10.8 g/dL (12.0-16.0); Mean Corpuscular Volume 91.4 fl (78.0-98.0); Mean Platelet Volume 10.2 fL (7.4-10.4); Platelet Count 237 10x3/uL (130-400); RBC Distribution Width 13.2 % (11.5-14.5); Red Blood Cell (RBC) Count 3.48 mill/uL (4.20-5.40); White Blood Cell (WBC) Count 11.2 10x3/uL (4.8-10.8)
[2022-12-20 09:38] LABS: Acetaminophen Less than 10 mcg/mL (10.0-30.0); Alcohol Less than 10.0 mg/dL (Less than 10); Salicylate Less than 8.0 mg/dL (15.0-30.0)
[2022-12-20] MEDS ORDERED: Vancomycin 1 GM/200 ML (FROZEN) BAG ONE (09:39)
[2022-12-20 09:45] LABS: Amphetamine Not Detected (NotDetected); Barbiturates Screen Not Detected (NotDetected); Benzodiazepine Screen Not Detected (NotDetected); Cocaine Metabolite Screen Not Detected (NotDetected); Methadone Not Detected (NotDetected); Methamphetamine Not Detected (NotDetected); Opiate Screen Not Detected (NotDetected); Oxycodone Screen Not Detected (NotDetected); Phencyclidine (PCP) Not Detected (NotDetected); THC/Cannabinoid Screen Not Detected (NotDetected); Tricyclic Screen Not Detected (NotDetected)
[2022-12-20 09:46] LABS: ALT (SGPT) 31 U/L (8-55); AST (SGOT) 72 U/L (5-34); Alkaline Phosphatase 121 U/L (40-110); Anion Gap 15 mmol/L (10-20); BUN (Urea Nitrogen) 47 mg/dL (9.8-20.1); Bilirubin, Total 1.8 mg/dL (0.2-1.2); Calc. Creatinine Clearance 0 mL/min (70-130); Calcium 7.6 mg/dL (7.8-10.44); Carbon Dioxide 16 mmol/L (23-31); Chloride 107 mmol/L (98-107); Estimated GFR 19; Globulin 2.6 g/dL (2.4-3.5); Glucose 87 mg/dL (80-115); Potassium 3.7 mmol/L (3.5-5.1); Protein, Total 5.6 g/dL (5.8-8.1); Sodium 134 mmol/L (136-145)
[2022-12-20 09:51] LABS: Troponin I 0.012 ng/mL (< 0.028)
[2022-12-20 09:52] LABS: Bacteria/HPF 2+ HPF (None Seen); Bilirubin Negative (Negative); Blood, Urine 2+ (Negative); CAUTI Indications for Culture Alt mental st,lethar; Clarity Extra Turbid (Clear); Glucose, Urine (Dipstick) Normal (Negative); Ketone, Urine Negative (Negative); Leukocyte 500 Leu/uL (Negative); Nitrite Negative (Negative); Protein, Urine (Dipstick) 200 mg/dL (Neg-Trace); Specific Gravity, Urine 1.013 (1.002-1.036)
[2022-12-20 09:57] LABS: WBC/HPF 21-50 HPF (0-3)
[2022-12-20 09:58] LABS: Urine Culture Reflex Yes Yes
[2022-12-20] MEDS ORDERED: Acetaminophen 325 MG TAB PO PRN (11:00)
[2022-12-20] MEDS ORDERED: Ondansetron PF 4 MG/2 ML Vial IVP PRN (11:00)
[2022-12-20] MEDS: Sodium Chloride 0.9% 1,000 ML IV SCH ×2 (11:22→15:40)
[2022-12-20 12:30] LABS: CSF RBC Count - Manual 0 /cu.mm (None Seen); CSF Source CSF; CSF WBC/NonHematics Count-Man 2 /cu.mm (0-5); Clarity Clear (Clear); Tube # 4
[2022-12-20 12:48] LABS: Lactic Acid 1.4 mmol/L (0.5-2.2)
[2022-12-20 12:56] LABS: CSF, Glucose 53 mg/dl (40-70); CSF, Protein 43 mg/dL (15-40)
[2022-12-20] MEDS ORDERED: NOREPINEPHRINE 8 MG/250 ML-D5W 250 ML ONE (13:10)
[2022-12-20 13:23] LABS: Color Of CSF Supernatant COLORLESS (Colorless); Tube # 1; Unspun CSF Color COLORLESS (Colorless)
[2022-12-20] MEDS ORDERED: Vancomycin Dose by Levels Sliding Scale (Wt <71) FS SCH (13:30)
[2022-12-20] MEDS ORDERED: NOREPINEPHRINE 8 MG/250 ML-D5W 250 ML IVPB SCH (14:30)
[2022-12-20] MEDS: Heparin 5,000 UNITS/ML VIAL SC SCH ×2 (15:39→20:25)
[2022-12-20] MEDS: Hydrocortisone Sod Succ/PF 100 mg/2 ml Vial IVP SCH ×2 (15:39→20:30)
[2022-12-20] MEDS: Sodium Bicarbonate Tab 325 MG TAB PO SCH ×2 (15:39→20:29)
[2022-12-20 17:53] VITALS: BMI 19.3
[2022-12-20] MEDS ORDERED: Vancomycin 1 GM in Premix 1 BAG IVPB SCH (21:00)
[2022-12-21] MEDS: Sodium Chloride 0.9% 1,000 ML IV SCH ×2 (01:39→07:08)
[2022-12-21 05:11] LABS: #Monocytes 0.5 thou/uL (0.11-0.59); #Neutrophils 8.3 thou/uL (1.40-6.50); %Basophils 0.2 % (0.0-1.0); %Lymphocytes 9.5 % (21.0-51.0); %Monocytes 5.4 % (0.0-10.0); %Neutrophils 84.2 % (42.0-75.0); Hematocrit 31.8 % (36.0-47.0); Hemoglobin 10.4 g/dL (12.0-16.0); Mean Corpuscular HGB CONC 32.7 g/dL (32.0-36.0); Mean Corpuscular Hemoglobin 30.8 pg (27.0-31.0); Mean Corpuscular Volume 94.1 fl (78.0-98.0); Mean Platelet Volume 10.7 fL (7.4-10.4); Platelet Count 229 10x3/uL (130-400); RBC Distribution Width 13.7 % (11.5-14.5); Red Blood Cell (RBC) Count 3.38 mill/uL (4.20-5.40); White Blood Cell (WBC) Count 9.8 10x3/uL (4.8-10.8)
[2022-12-21 05:38] LABS: Anion Gap 18 mmol/L (10-20); BUN (Urea Nitrogen) 31 mg/dL (9.8-20.1); Calc. Creatinine Clearance 32 mL/min (70-130); Calcium 7.5 mg/dL (7.8-10.44); Carbon Dioxide 11 mmol/L (23-31); Chloride 114 mmol/L (98-107); Estimated GFR 46; Glucose 91 mg/dL (80-115); Potassium 4.1 mmol/L (3.5-5.1); Sodium 139 mmol/L (136-145)
[2022-12-21] MEDS ORDERED: Pantoprazole 40 MG VIAL IVP SCH (09:00)
[2022-12-21] MEDS: Heparin 5,000 UNITS/ML VIAL SC SCH ×3 (09:34→20:57)
[2022-12-21] MEDS: Hydrocortisone Sod Succ/PF 100 mg/2 ml Vial IVP SCH ×3 (09:34→20:59)
[2022-12-21] MEDS: Sodium Bicarbonate Tab 325 MG TAB PO SCH ×3 (09:34→20:58)
[2022-12-21] MEDS: Cefepime 1 GM in Sodium Chloride 0.9% 100 ML IVPB SCH (09:34)
[2022-12-21] MEDS ORDERED: Vancomycin HCl 750 MG in Sodium Chloride 0.9% 250 ML 250 ML IVPB SCH (10:30)
[2022-12-21] MEDS: Sodium Bicarbonate 70 MEQ in Sodium Chloride 0.45% 1,000 ML IV SCH ×2 (11:29→21:52)
[2022-12-22] MEDS: Levothyroxine Sodium 75 MCG TAB PO SCH (05:20)
[2022-12-22 06:31] LABS: Anion Gap 15 mmol/L (10-20); BUN (Urea Nitrogen) 27 mg/dL (9.8-20.1); Calc. Creatinine Clearance 49 mL/min (70-130); Calcium 7.7 mg/dL (7.8-10.44); Carbon Dioxide 17 mmol/L (23-31); Chloride 112 mmol/L (98-107); Estimated GFR 72; Glucose 98 mg/dL (80-115); Potassium 3.4 mmol/L (3.5-5.1); Sodium 141 mmol/L (136-145)
[2022-12-22] MEDS: Sodium Bicarbonate 70 MEQ in Sodium Chloride 0.45% 1,000 ML IV SCH ×2 (09:24→19:44)
[2022-12-22] MEDS: Heparin 5,000 UNITS/ML VIAL SC SCH ×3 (09:25→21:58)
[2022-12-22] MEDS: Sodium Bicarbonate Tab 325 MG TAB PO SCH ×3 (09:25→21:58)
[2022-12-22] MEDS: Cefepime 1 GM in Sodium Chloride 0.9% 100 ML IVPB SCH (09:25)
[2022-12-22] MEDS: Hydrocortisone Sod Succ/PF 100 mg/2 ml Vial IVP SCH ×3 (09:25→21:59)
[2022-12-22 10:19] LABS: Vancomycin, Random 11.6 ug/mL (See Comment)
[2022-12-22] MEDS ORDERED: Potassium Bicarbonate/Cit Ac 20 MEQ TAB PO SCH (20:00)
[2022-12-23] MEDS: Levothyroxine Sodium 75 MCG TAB PO SCH (05:17)
[2022-12-23] MEDS: Sodium Bicarbonate 70 MEQ in Sodium Chloride 0.45% 1,000 ML IV SCH (07:06)
[2022-12-23 08:15] VITALS: BP 125/78; TEMP 97.9
[2022-12-23] MEDS: Sodium Bicarbonate Tab 325 MG TAB PO SCH (09:38)
[2022-12-23] MEDS: Heparin 5,000 UNITS/ML VIAL SC SCH (09:39)
[2022-12-23] MEDS: Cefepime 1 GM in Sodium Chloride 0.9% 100 ML IVPB SCH (09:41)
[2022-12-23] MEDS: Hydrocortisone Sod Succ/PF 100 mg/2 ml Vial IVP SCH (09:41)
[2022-12-23] MEDS ORDERED: FLU VACC QS2023(65UP)/MF59C/PF 60 MCG/0.5 ML SYRINGE IM ONE (17:00)
[2022-12-23] MEDS ORDERED: Cefepime 1 GM in Sodium Chloride 0.9% 100 ML IVPB SCH (21:00)
== END 2022-12-23 15:18 | disposition home or self-care (01) | DRG 871 ==
LOC: ERS 08:13 → ERHOLD 10:57 → CCU 15:01 → MSONC 12-22 20:38
PROVIDERS: ADMIT Internal Medicine; ATTEND Hospitalist
PROC: 009U3ZX Drainage of Spinal Canal, Percutaneous Approach, Diagnostic (ICD-10-PCS; principal; 2022-12-20)
PROC: 3E033XZ Introduction of Vasopressor into Peripheral Vein, Percutaneous Approach (ICD-10-PCS; 2022-12-20)
PROC: 3E03329 Introduction of Other Anti-infective into Peripheral Vein, Percutaneous Approach (ICD-10-PCS; 2022-12-20)
DX: A41.51 Sepsis due to Escherichia coli [E. coli] (principal); G93.41 Metabolic encephalopathy; R65.21 Severe sepsis with septic shock; E27.2 Addisonian crisis; N17.9 Acute kidney failure, unspecified; N39.0 Urinary tract infection, site not specified; E27.1 Primary adrenocortical insufficiency; E87.20 Acidosis, unspecified; E05.00 Thyrotoxicosis with diffuse goiter without thyrotoxic crisis or storm; Z90.49 Acquired absence of other specified parts of digestive tract; Z79.899 Other long term (current) drug therapy
CPT/HCPCS: 36415; 36416; 70450; 71045; 74176; 80048; 80053; 80202; 80306; 80307; 81001; 82140; 82945; 83605; 84157; 84443; 84484; 85025; 87040; 87070; 87077; 87086; 87149; 87186; 87205; 89051; 93005; C9113; J0692; J1644; J1720; J2405; J3370; J3370-JW; J3490; J7050

== ENCOUNTER 2022-12-26 11:15 | Inpatient (IN) | payer OTHER, MEDICAID ==
[2022-12-26 12:21] LABS: #Basophils 0.1 thou/uL (0.0-0.2); #Eosinphils 0.4 thou/uL (0.0-0.7); #Monocytes 1.2 thou/uL (0.11-0.59); #Neutrophils 5.3 thou/uL (1.40-6.50); %Basophils 0.6 % (0.0-1.0); %Neutrophils 49.9 % (42.0-75.0); Hemoglobin 11.9 g/dL (12.0-16.0); Mean Corpuscular Hemoglobin 31.2 pg (27.0-31.0); Mean Corpuscular Volume 91.9 fl (78.0-98.0); Mean Platelet Volume 9.4 fL (7.4-10.4); Platelet Count 525 10x3/uL (130-400); RBC Distribution Width 13.6 % (11.5-14.5); Red Blood Cell (RBC) Count 3.81 mill/uL (4.20-5.40); White Blood Cell (WBC) Count 10.5 10x3/uL (4.8-10.8)
[2022-12-26 12:42] LABS: ALT (SGPT) 14 U/L (8-55); AST (SGOT) 24 U/L (5-34); Albumin 2.7 g/dL (3.4-4.8); Alkaline Phosphatase 76 U/L (40-110); Anion Gap 16 mmol/L (10-20); BUN (Urea Nitrogen) 8 mg/dL (9.8-20.1); Bilirubin, Total 0.6 mg/dL (0.2-1.2); Calc. Creatinine Clearance 0 mL/min (70-130); Calcium 7.9 mg/dL (7.8-10.44); Carbon Dioxide 24 mmol/L (23-31); Chloride 103 mmol/L (98-107); Estimated GFR 96; Globulin 2.8 g/dL (2.4-3.5); Potassium 3.3 mmol/L (3.5-5.1); Protein, Total 5.5 g/dL (5.8-8.1); Sodium 140 mmol/L (136-145)
[2022-12-26 12:46] LABS: INR-International Normal Ratio 1.1; Prothrombin Time 14.6 sec (12.0-14.7)
[2022-12-26 12:47] LABS: Glucose 41 mg/dL (80-115); PTT 34.9 sec (22.9-36.1)
[2022-12-26] MEDS ORDERED: Cefepime 2 GM VIAL ONE (13:35)
[2022-12-26] MEDS ORDERED: Sodium Chloride 0.9% 100 ML ONE (13:35)
[2022-12-26] MEDS ORDERED: Acetaminophen 325 MG TAB PO PRN (14:23)
[2022-12-26] MEDS ORDERED: Ondansetron ODT 4 MG TAB PO PRN (14:23)
[2022-12-26] MEDS ORDERED: Vancomycin (BATCH) 2 GM/500 ML BAG ONE (14:36)
[2022-12-26 14:52] VITALS: BMI 19.7
[2022-12-26] MEDS ORDERED: Potassium Chloride 20 MEQ TAB ONE (16:13)
[2022-12-26 17:01] LABS: Bacteria/HPF None Seen HPF (None Seen); Bilirubin Negative (Negative); Blood, Urine Negative (Negative); CAUTI Indications for Culture Fever or rigors; Clarity Clear (Clear); Glucose, Urine (Dipstick) 70 mg/dL (Negative); Ketone, Urine 10 mg/dL (Negative); Leukocyte Negative Leu/uL (Negative); Nitrite Negative (Negative); Protein, Urine (Dipstick) Negative (Neg-Trace); RBC/HPF 0-3 HPF (0-3); Squamous Epithelial None Seen HPF (0-3); Urobilinogen Normal mg/dL (Less than 2); WBC/HPF 0-3 HPF (0-3); pH, Urine 7.5 (5.0-9.0)
[2022-12-26 17:13] LABS: Urine Culture Reflex No No
[2022-12-26] MEDS: Famotidine 20 MG TAB PO SCH (20:33)
[2022-12-26] MEDS: Fludrocortisone Acetate 0.1 MG TAB PO SCH (20:33)
[2022-12-27] MEDS: Cefepime 2 GM in Sodium Chloride 0.9% 100 ML IVPB SCH ×2 (01:10→16:07)
[2022-12-27 05:17] LABS: Anion Gap 16 mmol/L (10-20); BUN (Urea Nitrogen) 6 mg/dL (9.8-20.1); Calc. Creatinine Clearance 67 mL/min (70-130); Calcium 7.4 mg/dL (7.8-10.44); Carbon Dioxide 24 mmol/L (23-31); Chloride 103 mmol/L (98-107); Estimated GFR 96; Glucose 55 mg/dL (80-115); Potassium 3.8 mmol/L (3.5-5.1); Sodium 139 mmol/L (136-145)
[2022-12-27] MEDS: Levothyroxine Sodium 75 MCG TAB PO SCH (05:35)
[2022-12-27] MEDS ORDERED: Glucagon 1 MG/ML KIT IM PRN (07:01)
[2022-12-27] MEDS ORDERED: Dextrose 5% in Water 1,000 ML IV PRN (07:01)
[2022-12-27] MEDS ORDERED: Dextrose 50% Abboject 50 ML SYRINGE SLOW IVP PRN (07:01)
[2022-12-27] MEDS: Famotidine 20 MG TAB PO SCH (09:37)
[2022-12-27] MEDS: Hydrocortisone 10 mg Tablet PO SCH ×2 (09:39→20:13)
[2022-12-27] MEDS: Fludrocortisone Acetate 0.1 MG TAB PO SCH ×2 (09:40→20:13)
[2022-12-27] MEDS ORDERED: methylPREDNISolone Sod Succ 40 MG VIAL IVP SCH ×2 (14:45→21:00)
[2022-12-27] MEDS: Dextrose 5%-Lactated Ringers 1,000 ML IV SCH (16:07)
[2022-12-28] MEDS: Cefepime 2 GM in Sodium Chloride 0.9% 100 ML IVPB SCH (02:42)
[2022-12-28 05:55] LABS: #Basophils 0.1 thou/uL (0.0-0.2); #Eosinphils 0.2 thou/uL (0.0-0.7); #Monocytes 0.9 thou/uL (0.11-0.59); %Basophils 0.7 % (0.0-1.0); %Eosinophils 3.6 % (0.0-10.0); %Lymphocytes 36.9 % (21.0-51.0); %Monocytes 13.5 % (0.0-10.0); %Neutrophils 44.1 % (42.0-75.0); Hematocrit 31.7 % (36.0-47.0); Hemoglobin 10.7 g/dL (12.0-16.0); Mean Corpuscular HGB CONC 33.8 g/dL (32.0-36.0); Mean Corpuscular Hemoglobin 30.8 pg (27.0-31.0); Mean Corpuscular Volume 91.4 fl (78.0-98.0); Mean Platelet Volume 9.4 fL (7.4-10.4); Platelet Count 531 10x3/uL (130-400); RBC Distribution Width 13.9 % (11.5-14.5); Red Blood Cell (RBC) Count 3.47 mill/uL (4.20-5.40); White Blood Cell (WBC) Count 6.8 10x3/uL (4.8-10.8)
[2022-12-28] MEDS: Levothyroxine Sodium 75 MCG TAB PO SCH (06:05)
[2022-12-28 06:33] LABS: Anion Gap 14 mmol/L (10-20); BUN (Urea Nitrogen) 4 mg/dL (9.8-20.1); Calc. Creatinine Clearance 61 mL/min (70-130); Calcium 7.6 mg/dL (7.8-10.44); Carbon Dioxide 23 mmol/L (23-31); Chloride 103 mmol/L (98-107); Estimated GFR 94; Glucose 85 mg/dL (80-115); Phosphorus 3.3 mg/dL (2.3-4.7); Potassium 3.8 mmol/L (3.5-5.1); Sodium 136 mmol/L (136-145)
[2022-12-28] MEDS ORDERED: Magnesium Sulfate 4 GM in Sodium Chloride 0.9% 250 ML 250 ML IVPB SCH (08:00)
[2022-12-28] MEDS ORDERED: Electrolyte Replacement Protocol 1 EACH FS SCH (08:00)
[2022-12-28] MEDS ORDERED: Ciprofloxacin 500 MG TAB PO SCH (09:00)
[2022-12-28] MEDS ORDERED: Magnesium Sulfate In Water 4 GM in Premix 1 BAG IVPB SCH (09:00)
[2022-12-28] MEDS: Hydrocortisone 10 mg Tablet PO SCH (09:13)
[2022-12-28] MEDS: Fludrocortisone Acetate 0.1 MG TAB PO SCH (09:13)
[2022-12-28 09:43] VITALS: BP 135/81; TEMP 97.7
[2022-12-28] MEDS: Dextrose 5%-Lactated Ringers 1,000 ML IV SCH (11:01)
[2022-12-28 13:30] LABS: Magnesium 2.3 mg/dL (1.6-2.6)
== END 2022-12-28 16:19 | disposition home or self-care (01) | DRG 872 ==
LOC: ERS 11:15 → ERHOLD 13:52 → MSONC 19:44
PROVIDERS: ADMIT Family Medicine; ATTEND Family Medicine
DX: R78.81 Bacteremia (principal); E27.1 Primary adrenocortical insufficiency; E05.00 Thyrotoxicosis with diffuse goiter without thyrotoxic crisis or storm; E87.6 Hypokalemia; E16.2 Hypoglycemia, unspecified; E83.42 Hypomagnesemia; R41.0 Disorientation, unspecified; Z98.890 Other specified postprocedural states; Z79.899 Other long term (current) drug therapy; Z79.890 Hormone replacement therapy; Z90.49 Acquired absence of other specified parts of digestive tract
CPT/HCPCS: 36415; 36416; 80048; 80053; 81001; 83605; 83735; 84100; 85025; 85610; 85730; 87040; 96365; 96367; J0692; J1650; J3370; J3475; J3490

== ENCOUNTER 2024-03-11 17:30 | Inpatient (IN) | payer OTHER ==
[~2024-03-11 17:30] MED LIST changes: -Iopamidol-370 76% 500 ML 1 ML ONE; +Iopamidol-370 76% 500 ML MDV (1 ML CHARGE) ONE
[2024-03-11] MEDS ORDERED: Hydrocortisone Sod Succ/PF 100 mg/2 ml Vial ONE (17:53)
[2024-03-11] MEDS ORDERED: dilTIAZem 25 MG/5 ML VIAL ONE (17:57)
[2024-03-11] MEDS ORDERED: dilTIAZem 125 MG/25 ML SDV ONE (17:58)
[2024-03-11 18:05] LABS: #Basophils 0.03 10x3/uL (0.0-0.2); %Basophils 0.4 % (0.0-1.0); %Eosinophils 2.1 % (0.0-10.0); %Lymphocytes 34.9 % (21.0-51.0); %Neutrophils 52.2 % (42.0-75.0); Hematocrit 30.4 % (36.0-47.0); Hemoglobin 10.5 g/dL (12.0-16.0); Mean Corpuscular HGB CONC 34.5 g/dL (32.0-36.0); Mean Corpuscular Hemoglobin 29.9 pg (27.0-31.0); Mean Corpuscular Volume 86.6 fL (78.0-98.0); Mean Platelet Volume 10.1 fL (7.4-10.4); Platelet Count 309 10x3/uL (130-400); RBC Distribution Width 13.7 % (11.5-14.5); Red Blood Cell (RBC) Count 3.51 mill/uL (4.20-5.40)
[2024-03-11 18:24] LABS: ALT (SGPT) 30 U/L (Less than 34); AST (SGOT) 60 U/L (11-34); Albumin 2.8 g/dL (3.1-4.5); Alkaline Phosphatase 96 U/L (40-110); Anion Gap 14 mmol/L (10-20); BUN (Urea Nitrogen) 15 mg/dL (9.8-20.1); Bilirubin, Total 1.2 mg/dL (0.3-1.2); Calc. Creatinine Clearance 0 mL/min (70-130); Calcium 8.5 mg/dL (7.8-10.44); Carbon Dioxide 13 mmol/L (23-31); Chloride 114 mmol/L (98-107); Estimated GFR 75; Globulin 3.4 g/dL (2.4-3.5); Glucose 95 mg/dL (80-115); Lipase 7 U/L (8-78); Magnesium 1.5 mg/dL (1.6-2.6); Potassium 3.8 mmol/L (3.5-5.1); Protein, Total 6.2 g/dL (5.8-8.1); Sodium 137 mmol/L (136-145)
[2024-03-11 18:25] LABS: Acetaminophen Less than 10 mcg/mL (Less than 10); Alcohol Less than 10.0 mg/dL (Less than 10); Salicylate Less than 8.0 mg/dL (Less than 8.0)
[2024-03-11] MEDS ORDERED: Furosemide 40 MG (4 mL) VIAL ONE (18:49)
[2024-03-11] MEDS ORDERED: Cefepime 2 GM VIAL ONE (19:02)
[2024-03-11] MEDS ORDERED: Sodium Chloride 0.9% 100 ML ONE (19:02)
[2024-03-11] MEDS ORDERED: Enoxaparin 60 MG (0.6 mL) SYRINGE ONE (19:13)
[2024-03-11] MEDS ORDERED: Aspirin Chewable 81 MG TAB ONE (19:18)
[2024-03-11] MEDS ORDERED: Magnesium 2 GM/50 ML BAG (IN WATER) ONE (19:25)
[2024-03-11 19:33] LABS: Bacteria/HPF None Seen HPF (None Seen); Bilirubin Negative (Negative); Blood, Urine 2+ (Negative); CAUTI Indications for Culture Alt mental st,lethar; Clarity Clear (Clear); Glucose, Urine (Dipstick) Normal (Negative); Ketone, Urine Negative (Negative); Leukocyte Negative Leu/uL (Negative); Nitrite Negative (Negative); Protein, Urine (Dipstick) Negative (Neg-Trace); Specific Gravity, Urine 1.021 (1.002-1.036); Squamous Epithelial None Seen HPF (0-3); Urobilinogen Normal mg/dL (Less than 2); WBC/HPF 0-3 HPF (0-3)
[2024-03-11 19:37] LABS: Urine Culture Reflex No No
[2024-03-11 19:38] LABS: Amphetamine Not Detected (NotDetected); Barbiturates Screen Not Detected (NotDetected); Benzodiazepine Screen Not Detected (NotDetected); Cocaine Metabolite Screen Not Detected (NotDetected); Methadone Not Detected (NotDetected); Methamphetamine Not Detected (NotDetected); Opiate Screen Not Detected (NotDetected); Oxycodone Screen Not Detected (NotDetected); Phencyclidine (PCP) Not Detected (NotDetected); THC/Cannabinoid Screen Not Detected (NotDetected); Tricyclic Screen Not Detected (NotDetected)
[2024-03-11 20:14] LABS: Base Excess -10.7 mEq/L (-2.0 to +3.0); Calcium, Ionized (venous) 1.05 mmol/L (1.16-1.32); Chloride (VBG) 110 mmol/L (98-106); Hematocrit-VBG 39 % (36.0-47.0); Hemoglobin (Hb) 13.1 g/dL (11.7-16.1); Potassium (VBG) 3.46 mmol/L (3.70-5.30); Sodium 139 mmol/L (133-146); pH (venous) 7.306 (7.32-7.43)
[2024-03-11 20:15] LABS: Actual Bicarbonate (HCO3v) 14.2 mEq/L (22-28)
[2024-03-11] MEDS ORDERED: DOBUTamine 500 mg/250 ml 0 ML ONE (20:56)
[2024-03-11] MEDS ORDERED: NOREPINEPHRINE 8 MG/250 ML-D5W 250 ML ONE (21:02)
[2024-03-11] MEDS ORDERED: Ondansetron PF 4 MG/2 ML Vial IVP PRN (21:15)
[2024-03-11] MEDS ORDERED: Vancomycin 1 GM/200 ML (FROZEN) BAG ONE (21:25)
[2024-03-11] MEDS ORDERED: Electrolyte Replacement Protocol 1 EACH IVPB PRN (21:37)
[2024-03-11] MEDS ORDERED: Acetaminophen 325 MG (10.15 ML) UDCUP PO PRN (21:37)
[2024-03-11] MEDS ORDERED: Acetaminophen 650 MG Suppository PR PRN ×2 (21:37→21:38)
[2024-03-11] MEDS ORDERED: Acetaminophen 325 MG TAB PO PRN (21:38)
[2024-03-11 22:19] VITALS: BMI 19.5
[2024-03-11 22:43] LABS: Lactic Acid 2.96 mmol/L (0.50-2.20)
[2024-03-11 22:58] LABS: Troponin I 0.618 ng/mL (< 0.028)
[2024-03-12 02:38] LABS: Critical Call Chem Troponin I RESULT DECREASING
[2024-03-12 04:03] LABS: #Basophils 0.03 10x3/uL (0.0-0.2); #Eosinophils Less than 0.03 10x3/uL (0.0-0.7); %Basophils 0.4 % (0.0-1.0); %Eosinophils 0.1 % (0.0-10.0); %Lymphocytes 14.3 % (21.0-51.0); %Monocytes 7.6 % (0.0-10.0); %Neutrophils 77.2 % (42.0-75.0); Hematocrit 29.6 % (36.0-47.0); Hemoglobin 10.4 g/dL (12.0-16.0); Mean Corpuscular HGB CONC 35.1 g/dL (32.0-36.0); Mean Corpuscular Hemoglobin 30.2 pg (27.0-31.0); Mean Platelet Volume 10.8 fL (7.4-10.4); Platelet Count 359 10x3/uL (130-400); RBC Distribution Width 13.5 % (11.5-14.5); Red Blood Cell (RBC) Count 3.44 mill/uL (4.20-5.40)
[2024-03-12 04:13] LABS: Vancomycin, Random 19.4 ug/mL (See Comment)
[2024-03-12 04:17] LABS: ALT (SGPT) 34 U/L (Less than 34); AST (SGOT) 65 U/L (11-34); Albumin 2.7 g/dL (3.1-4.5); Alkaline Phosphatase 110 U/L (40-110); Anion Gap 16 mmol/L (10-20); BUN (Urea Nitrogen) 14 mg/dL (9.8-20.1); Bilirubin, Total 0.7 mg/dL (0.3-1.2); Calc. Creatinine Clearance 41 mL/min (70-130); Calcium 8.2 mg/dL (7.8-10.44); Carbon Dioxide 15 mmol/L (23-31); Chloride 107 mmol/L (98-107); Estimated GFR 62; Globulin 3.2 g/dL (2.4-3.5); Glucose 108 mg/dL (80-115); Protein, Total 5.9 g/dL (5.8-8.1); Sodium 135 mmol/L (136-145)
[2024-03-12] MEDS: Levothyroxine Sodium 75 MCG TAB PO SCH (05:41)
[2024-03-12] MEDS: Famotidine/PF 20 mg/2ml Vial SLOW IVP SCH (07:46)
[2024-03-12] MEDS: Potassium Chloride 20 MEQ TAB PO SCH ×2 (07:47→23:22)
[2024-03-12] MEDS: Fludrocortisone Acetate 0.1 MG TAB PO SCH (07:47)
[2024-03-12] MEDS: Pantoprazole 40 MG DR.TAB PO SCH (08:36)
[2024-03-12] MEDS: Enoxaparin 40 MG (0.4 mL) SYRINGE SC SCH (08:51)
[2024-03-12] MEDS: Cefepime 2 GM in Sodium Chloride 0.9% 100 ML IVPB SCH (08:51)
[2024-03-12] MEDS ORDERED: Vancomycin 1.5 GM in Sodium Chloride 0.9% 250 ML 300 ML IVPB SCH (09:00)
[2024-03-12] MEDS: Hydrocortisone 10 mg Tablet PO SCH (13:22)
[2024-03-12] MEDS: Vancomycin 1 GM in Premix 1 BAG IVPB SCH (13:22)
[2024-03-12] MEDS ORDERED: Vancomycin 1 GM in Premix 1 BAG IVPB SCH (15:00)
[2024-03-12] MEDS: Cefepime 1 GM in Sodium Chloride 0.9% 100 ML IVPB SCH (20:05)
[2024-03-12 20:40] LABS: Potassium 3.2 mmol/L (3.5-5.1)
[2024-03-13 02:24] LABS: Potassium 3.8 mmol/L (3.5-5.1)
[2024-03-13 03:43] LABS: #Basophils 0.05 10x3/uL (0.0-0.2); %Basophils 0.5 % (0.0-1.0); %Eosinophils 1.2 % (0.0-10.0); %Lymphocytes 21.8 % (21.0-51.0); %Monocytes 9.6 % (0.0-10.0); %Neutrophils 66.4 % (42.0-75.0); Hemoglobin 9.7 g/dL (12.0-16.0); Mean Corpuscular HGB CONC 34.6 g/dL (32.0-36.0); Mean Corpuscular Hemoglobin 30.1 pg (27.0-31.0); Mean Platelet Volume 10.6 fL (7.4-10.4); Platelet Count 359 10x3/uL (130-400); RBC Distribution Width 13.5 % (11.5-14.5); Red Blood Cell (RBC) Count 3.22 mill/uL (4.20-5.40)
[2024-03-13 04:31] LABS: ALT (SGPT) 24 U/L (Less than 34); AST (SGOT) 37 U/L (11-34); Albumin 2.4 g/dL (3.1-4.5); Alkaline Phosphatase 87 U/L (40-110); Anion Gap 13 mmol/L (10-20); BUN (Urea Nitrogen) 12 mg/dL (9.8-20.1); Bilirubin, Total 0.5 mg/dL (0.3-1.2); Calc. Creatinine Clearance 43 mL/min (70-130); Calcium 7.8 mg/dL (7.8-10.44); Carbon Dioxide 17 mmol/L (23-31); Chloride 110 mmol/L (98-107); Estimated GFR 64; Globulin 3.1 g/dL (2.4-3.5); Glucose 115 mg/dL (80-115); Potassium 3.9 mmol/L (3.5-5.1); Protein, Total 5.5 g/dL (5.8-8.1); Sodium 136 mmol/L (136-145)
[2024-03-13] MEDS: Hydrocortisone Sod Succ/PF 100 mg/2 ml Vial IVP SCH (12:21)
[2024-03-14] MEDS: NOREPINEPHRINE 8 MG/250 ML-D5W 250 ML IVPB PRN (02:23)
[2024-03-14 08:46] LABS: ALT (SGPT) 24 U/L (Less than 34); AST (SGOT) 32 U/L (11-34); Albumin 2.8 g/dL (3.1-4.5); Alkaline Phosphatase 88 U/L (40-110); Anion Gap 13 mmol/L (10-20); BUN (Urea Nitrogen) 9 mg/dL (9.8-20.1); Bilirubin, Total 0.5 mg/dL (0.3-1.2); Calc. Creatinine Clearance 50 mL/min (70-130); Calcium 8.2 mg/dL (7.8-10.44); Carbon Dioxide 18 mmol/L (23-31); Chloride 110 mmol/L (98-107); Estimated GFR 78; Globulin 3.3 g/dL (2.4-3.5); Glucose 156 mg/dL (80-115); Potassium 3.6 mmol/L (3.5-5.1); Protein, Total 6.1 g/dL (5.8-8.1); Sodium 137 mmol/L (136-145)
[2024-03-15 07:42] LABS: #Basophils Less than 0.03 10x3/uL (0.0-0.2); %Basophils 0.2 % (0.0-1.0); %Eosinophils 0.3 % (0.0-10.0); %Lymphocytes 21.5 % (21.0-51.0); %Monocytes 8.7 % (0.0-10.0); %Neutrophils 68.1 % (42.0-75.0); Hematocrit 27.7 % (36.0-47.0); Hemoglobin 9.5 g/dL (12.0-16.0); Mean Corpuscular HGB CONC 34.3 g/dL (32.0-36.0); Mean Corpuscular Hemoglobin 30.5 pg (27.0-31.0); Mean Corpuscular Volume 89.1 fL (78.0-98.0); Mean Platelet Volume 9.5 fL (7.4-10.4); Platelet Count 439 10x3/uL (130-400); RBC Distribution Width 14.1 % (11.5-14.5); Red Blood Cell (RBC) Count 3.11 mill/uL (4.20-5.40)
[2024-03-15 08:01] LABS: Anion Gap 13 mmol/L (10-20); BUN (Urea Nitrogen) 9 mg/dL (9.8-20.1); Calc. Creatinine Clearance 48 mL/min (70-130); Calcium 8.5 mg/dL (7.8-10.44); Carbon Dioxide 20 mmol/L (23-31); Chloride 110 mmol/L (98-107); Estimated GFR 74; Glucose 125 mg/dL (80-115); Potassium 3.6 mmol/L (3.5-5.1); Sodium 139 mmol/L (136-145)
[2024-03-15] MEDS: Midodrine HCl 5 MG TAB PO SCH ×2 (10:00→14:00)
[2024-03-15] MEDS: Lactated Ringer's 1,000 ML IV SCH (10:00)
[2024-03-16 09:16] LABS: #Basophils 0.03 10x3/uL (0.0-0.2); %Basophils 0.3 % (0.0-1.0); %Eosinophils 0.4 % (0.0-10.0); %Lymphocytes 17.4 % (21.0-51.0); %Monocytes 7.2 % (0.0-10.0); %Neutrophils 72.5 % (42.0-75.0); Hematocrit 33.5 % (36.0-47.0); Hemoglobin 10.9 g/dL (12.0-16.0); Mean Corpuscular HGB CONC 32.5 g/dL (32.0-36.0); Mean Corpuscular Hemoglobin 30.6 pg (27.0-31.0); Mean Corpuscular Volume 94.1 fL (78.0-98.0); Mean Platelet Volume 9.8 fL (7.4-10.4); Platelet Count 443 10x3/uL (130-400); RBC Distribution Width 15.4 % (11.5-14.5); Red Blood Cell (RBC) Count 3.56 mill/uL (4.20-5.40)
[2024-03-16 09:31] LABS: Anion Gap 14 mmol/L (10-20); BUN (Urea Nitrogen) 10 mg/dL (9.8-20.1); Calc. Creatinine Clearance 51 mL/min (70-130); Calcium 8.7 mg/dL (7.8-10.44); Carbon Dioxide 16 mmol/L (23-31); Chloride 113 mmol/L (98-107); Estimated GFR 79; Glucose 126 mg/dL (80-115); Potassium 3.4 mmol/L (3.5-5.1); Sodium 140 mmol/L (136-145)
[2024-03-16] MEDS: Potassium Bicarbonate/Cit Ac 20 MEQ TAB PO SCH (13:25)
[2024-03-17 07:11] LABS: #Basophils Less than 0.03 10x3/uL (0.0-0.2); %Basophils 0.2 % (0.0-1.0); %Eosinophils 0.3 % (0.0-10.0); %Monocytes 8.5 % (0.0-10.0); %Neutrophils 71.9 % (42.0-75.0); Hemoglobin 9.3 g/dL (12.0-16.0); Mean Corpuscular HGB CONC 33.2 g/dL (32.0-36.0); Mean Corpuscular Hemoglobin 30.4 pg (27.0-31.0); Mean Corpuscular Volume 91.5 fL (78.0-98.0); Mean Platelet Volume 9.7 fL (7.4-10.4); Platelet Count 442 10x3/uL (130-400); RBC Distribution Width 15.7 % (11.5-14.5); Red Blood Cell (RBC) Count 3.06 mill/uL (4.20-5.40)
[2024-03-17 07:34] LABS: Anion Gap 15 mmol/L (10-20); BUN (Urea Nitrogen) 13 mg/dL (9.8-20.1); Calc. Creatinine Clearance 52 mL/min (70-130); Calcium 8.3 mg/dL (7.8-10.44); Carbon Dioxide 22 mmol/L (23-31); Chloride 109 mmol/L (98-107); Estimated GFR 77; Glucose 107 mg/dL (80-115); Potassium 4.2 mmol/L (3.5-5.1); Sodium 142 mmol/L (136-145)
[2024-03-17] MEDS: Lactated Ringer's 1,000 ML IV SCH (16:38)
[2024-03-17] MEDS: Hydrocortisone Sod Succ/PF 100 mg/2 ml Vial IVP SCH (20:47)
[2024-03-18 03:54] VITALS: TEMP 97.8
[2024-03-18 05:10] LABS: #Basophils 0.03 10x3/uL (0.0-0.2); %Basophils 0.3 % (0.0-1.0); %Lymphocytes 20.4 % (21.0-51.0); %Monocytes 10.4 % (0.0-10.0); Hematocrit 31.9 % (36.0-47.0); Mean Corpuscular HGB CONC 34.5 g/dL (32.0-36.0); Mean Corpuscular Hemoglobin 30.9 pg (27.0-31.0); Mean Corpuscular Volume 89.6 fL (78.0-98.0); Mean Platelet Volume 9.6 fL (7.4-10.4); Platelet Count 452 10x3/uL (130-400); Red Blood Cell (RBC) Count 3.56 mill/uL (4.20-5.40)
[2024-03-18 05:27] LABS: Anion Gap 13 mmol/L (10-20); BUN (Urea Nitrogen) 14 mg/dL (9.8-20.1); Calc. Creatinine Clearance 47 mL/min (70-130); Calcium 8.3 mg/dL (7.8-10.44); Carbon Dioxide 20 mmol/L (23-31); Chloride 111 mmol/L (98-107); Estimated GFR 69; Glucose 111 mg/dL (80-115); Potassium 3.5 mmol/L (3.5-5.1); Sodium 140 mmol/L (136-145)
[2024-03-18] MEDS: Potassium Chloride 20 MEQ TAB PO SCH (08:02)
[2024-03-18 10:50] VITALS: BP 142/80
[2024-03-18] MEDS ORDERED: Midodrine HCl 5 MG TAB PO SCH (15:00)
== END 2024-03-18 12:30 | disposition home or self-care (01) | DRG 871 ==
LOC: ERS 17:30 → EEVIPCON 21:04 → CCU 21:04 → T4-A 03-16 18:23
PROVIDERS: ADMIT Student in an Organized Health Care Education/Training Program; ATTEND Family Medicine
PROC: 06HY33Z Insertion of Infusion Device into Lower Vein, Percutaneous Approach (ICD-10-PCS; principal; 2024-03-11)
PROC: 3E033XZ Introduction of Vasopressor into Peripheral Vein, Percutaneous Approach (ICD-10-PCS; 2024-03-11)
PROC: 3E03329 Introduction of Other Anti-infective into Peripheral Vein, Percutaneous Approach (ICD-10-PCS; 2024-03-11)
DX: A41.9 Sepsis, unspecified organism (principal); I21.4 Non-ST elevation (NSTEMI) myocardial infarction; R65.21 Severe sepsis with septic shock; R57.0 Cardiogenic shock; E27.2 Addisonian crisis; I48.92 Unspecified atrial flutter; E87.20 Acidosis, unspecified; I51.81 Takotsubo syndrome; E83.42 Hypomagnesemia; Z90.49 Acquired absence of other specified parts of digestive tract; E87.6 Hypokalemia; E03.9 Hypothyroidism, unspecified; Z79.899 Other long term (current) drug therapy; I10 Essential (primary) hypertension
CPT/HCPCS: 36415; 36416; 36556; 51701; 70450; 71045; 71275; 80048; 80053; 80202; 80306; 80307; 81001; 82805; 83605; 83690; 83735; 83880; 84443; 84484; 85025; 87040; 87086; 93005; 93306; 96361; 96365; 96367; 96372; 96375; J0692; J1250; J1650; J1720; J1940; J3370; J3475; J3490; J7120; Q9967